=== PATIENT | male | born 1975 | race Caucasian/White ===

== ENCOUNTER 2018-02-13 08:23 | Emergency (ER) | payer BC, SELFPAY ==
[2018-02-13] VITALS (48 sets, daily range): BP systolic 120–176; BP diastolic 82–108; PULSE 64–95; RESP 6–32; TEMP 36.9; O2SAT 93–99
--- NOTE | 2018-02-13 08:41 | ED.GENADUL ---
Disposition Clinical Impression: Chest pain Disposition: HOME Condition: Stable Instructions: Chest Pain (ED) Additional Instructions: Please return immediately to the emergency department if you develop any new or worsening symptoms or if you become otherwise concerned. It is extremely important that you make an appointment to be seen by your primary care doctor and a employee communications manager within the next 1-2 weeks in follow-up for this visit. It is also extremely important that you attend your scheduled appointment this February 15 at 2 PM for stress test. Referrals: Dann Buckley MD [Primary Care Provider] - Ramsey Chan MD [ NON-[facility] STAFF PHYSICIAN] - Medical Decision Making - Lab Data Laboratory Tests 02/13/18 02/13/18 02/13/18 08:35 08:35 08:35 WBC 7.29 RBC 4.66 Hgb 15.5 Hct 44.6 MCV 95.7 H MCH 33.3 H MCHC 34.8 RDW 12.1 Plt Count 284 MPV 9.9 Immature Gran % 0.4 Neutrophils % 65.1 Lymphocytes % 25.4 Monocytes % 7.7 Eosinophils % 1.0 Basophils % 0.4 Absolute Neutrophils 4.75 Absolute Lymphocytes 1.85 Absolute Monocytes 0.56 Absolute Eosinophils 0.07 Absolute Basophils 0.03 D-Dimer 138 Sodium 137 Potassium 3.7 Chloride 102 Carbon Dioxide 27.5 Anion Gap 7.5 BUN 10 Creatinine 1.12 Estimated GFR/1.73 m2 >= 60.00 Glucose 110 H Calcium 8.8 Total Bilirubin 0.9 AST 27 ALT 62 Alkaline Phosphatase 57 Troponin I < 0.02 Total Protein 7.6 Albumin 4.2 02/13/18 12:12 WBC RBC Hgb Hct MCV MCH MCHC RDW Plt Count MPV Immature Gran % Neutrophils % Lymphocytes % Monocytes % Eosinophils % Basophils % Absolute Neutrophils Absolute Lymphocytes Absolute Monocytes Absolute Eosinophils Absolute Basophils D-Dimer Sodium Potassium Chloride Carbon Dioxide Anion Gap BUN Creatinine Estimated GFR/1.73 m2 Glucose Calcium Total Bilirubin AST ALT Alkaline Phosphatase Troponin I < 0.02 Total Protein Albumin Results reviewed for labs ordered during visit: Yes 02/13/18 11:17 EKG shows normal sinus rhythm at 90 with normal axis, no acute ischemic changes, no STEMI. Nondiagnostic EKG 02/13/18 12:45 Repeat EKG shows normal sinus rhythm at 66 with a normal axis, no acute ischemic changes. Nondiagnostic EKG - Radiology Data Chest x-ray visualized and interpreted by myself in conjunction with radiology: No acute process - Medical Decision Making Jose David Garcia is a 42-year-old man with history of hypertension, hyperlipidemia, GERD, heavy alcohol use who presents the emergency department with chest pain for approximately 36 hours, much worse at onset, now improved at 2 out of 10. No current shortness of breath. On exam patient is very well and nontoxic appearing. Appears comfortable. Concern for ACS versus PE versus GERD versus pericarditis versus other. Exam/history not consistent with acute aortic pathology. Plan for EKG, stress chest x-ray, screening labs, telemetry, IV, 324 mg chewable aspirin, sublingual nitroglycerin. EKG nonischemic. Patient reports no change in chest pressure after nitroglycerin, but now with headache. Will hold further nitroglycerin at this time. Plan for GI cocktail. Initial troponin negative. Will repeat troponin and EKG. Patient reports complete resolution of symptoms after GI cocktail. Feels in his usual state of health. Plan repeat troponin and repeat EKG negative. Patient continues to be symptom free. Plan for outpatient follow-up with PCP and cardiology, stress test scheduled for February 15 2 PM. Lengthy discussion with patient regarding return to emergency department precautions and importance of outpatient follow-up as planned. He is amenable to the plan. Patient placed on care management list for cardiology follow-up appointment. History of Present Illness - General Stated complaint: PER DR BUCKLEY CHEST PAIN Time Seen by Provider: 02/13/18 08:26 Source: patient, RN notes reviewed Mode of arrival: ambulatory Limitations: no limitations - History of Present Illness Initial comments: Jose David Garcia is a 42-year-old man with history of hypertension, hyperlipidemia, GERD presenting to the emergency department with chest pain. Patient reports that 2 nights ago he had intercourse with his , walked downstairs, sat down and developed left-sided chest pressure. Patient reports that he also felt quite short of breath with the chest pressure. Pain radiated into the left arm. Patient reports that chest pressure has been constant and unremitting since onset that night, although it has decreased significantly in severity. Patient reports that pain is currently a 2 out of 10. He no longer feels short of breath. He has had no nausea, vomiting, diarrhea. He denies any other pain. No fevers, no cough. No recent illnesses. No travel. Has been eating and drinking normally. No history of chest pain prior to this episode. - Related Data Indomethacin 50 mg PO TID PRN #30 tab-cap 06/28/16 Losartan [Cozaar] 50 mg PO DAILY 30 Days #30 tab-cap 09/27/17 Ibuprofen 800 mg PO TID PRN #90 tab-cap 10/07/17 [place], Disposable [Easy Touch Hypodermic Needle] each MC q 2 weeks #1 10/07/17 Syringe W-Cannula,Disp, 3 ml [Syringe] 1 each MC q 2 weeks #25 syringe 10/07/17 Testosterone Cypionate 100 mg IM q 2 weeks #2 vial 01/06/18 Allergies Allergy/AdvReac Type Severity Reaction Status Date / Time No Known Allergies Allergy Unverified 02/13/18 08:59 Review of Systems Constitutional: denies: fever Eyes: denies: eye pain ENT: denies: ear pain, throat pain, dental pain Respiratory: see HPI, shortness of breath. denies: cough Cardiovascular: denies: chest pain, orthopnea, edema, syncope Endocrine: denies: increased hunger, increased thirst Gastrointestinal: denies: abdominal pain, nausea, vomiting, diarrhea Musculoskeletal: as per HPI, myalgia (Left upper arm). denies: back pain, arthralgia Skin: denies: rash Neurological: denies: headache, weakness, numbness Past Medical History - Past Medical History Medical history: GERD, hyperlipidemia, hypertension - Social History Smoking status: current everyday smoker Alcohol use: heavy (Drinks 2-3 beers per night during the week and drinks 6-7 beers per night on the weekends) Drug use: none General Exam - General Limitations: no limitations General appearance: alert, in no apparent distress, other (Pleasant, conversing normally, well and nontoxic appearing) - Head Head exam: Present: atraumatic, normocephalic, normal inspection - Eye Eye exam: Absent: scleral icterus, conjunctival injection Pupils: Absent: irregular, unequal, miosis, mydriatic - ENT ENT exam: Present: mucous membranes moist - Neck Neck exam: Present: normal inspection - Respiratory Respiratory exam: Present: normal lung sounds bilaterally. Absent: respiratory distress - Cardiovascular Cardiovascular Exam: Present: regular rate, normal rhythm, normal heart sounds - GI/Abdominal GI/Abdominal exam: Present: soft. Absent: distended, tenderness - Extremities Exam Extremities exam: Present: normal inspection. Absent: pedal edema, calf tenderness - Back Exam Back exam: Present: normal inspection. Absent: rash noted - Neurological Exam Neurological exam: Present: alert, other (Grossly nonfocal, normal tone). Absent: altered - Psychiatric Psychiatric exam: Present: normal affect, normal mood - Skin Skin exam: Present: warm, dry, intact, normal color. Absent: rash
[2018-02-13 08:43] LABS: Abs Immature Grans 0.03 k/cumm (0.0-0.09); Absolute Basophil Count 0.03 k/cumm (0.0-0.2); Absolute Eosinophil Count 0.07 k/cumm (0.0-0.7); Absolute Lymphocyte Count 1.85 k/cumm (1.2-3.4); Absolute Monocyte Count 0.56 k/cumm (0.11-0.7); Absolute Neutrophil Count 4.75 k/cumm (1.2-6.7); Basophils % 0.4; HCT 44.6 % (40.0-50.0); HGB 15.5 g/dL (13.5-17.5); Immature Grans % 0.4; Lymphocytes % 25.4; Mean Corp. HGB Concentration 34.8 g/dL (32.0-36.0); Mean Corpuscular Hemoglobin 33.3 pg (27.0-33.0); Mean Corpuscular Volume 95.7 fL (80-95); Mean Platelet Volume 9.9 fL (8.0-11.0); Monocytes % 7.7; Neutrophils % 65.1; Platelet Count 284 x1000/uL (130-400); RBC 4.66 m/cumm (4.50-6.00); RBC Distribution Width 12.1 % (11.8-14.1); White Blood Cell Count 7.29 k/cumm (4.4-10.8)
--- NOTE | 2018-02-13 08:52 | DI.REPORT_ITS ---
SYMPTOM/DIAGNOSIS: CHEST PAIN CHEST X-RAY: PA and lateral. Comparison 07/05/11. The heart is normal in size. The lungs are clear. The mediastinal structures and pleura appear intact. CONCLUSION: Normal chest.
[2018-02-13 09:00] LABS: ALT 62 U/L (12-78); AST 27 U/L (15-37); Albumin 4.2 g/dL (3.4-5.0); Alkaline Phosphatase 57 U/L (46-116); Anion Gap 7.5 mmol/L (3-11); BUN 10 mg/dL (7-18); Bilirubin, Total 0.9 mg/dL (0.2-1.0); CO2 27.5 mmol/L (21.0-32.0); CREATININE 1.12 mg/dL (0.70-1.30); Calcium 8.8 mg/dL (8.5-10.1); Chloride 102 mmol/L (98-107); Glucose 110 mg/dL (70-100); Potassium 3.7 mmol/L (3.5-5.1); Sodium 137 mmol/L (136-145); Total Protein 7.6 g/dL (6.4-8.2); Troponin I < 0.02 ng/mL (0.00-0.06)
[2018-02-13] MEDS: Aspirin 81 MG CHEW 324 MG CH (09:10)
[2018-02-13 09:13] LABS: D-Dimer 138 ng/mlFEU (<500)
[2018-02-13 12:37] LABS: Troponin I < 0.02 ng/mL (0.00-0.06)
--- NOTE | 2018-02-14 08:30 | CMPROGNOTE_ITS ---
Care Management Progress Note 02/14-Dr. Margret Bee requested assistance with a PCP f/u and cardiology f/u post stress test, that is scheduled for 02/15 at 2PM. Patient seen in the ED for chest pain. Referral faxed to Cardiology and [facility] this am.
== END 2018-02-13 12:54 | disposition home or self-care (01) ==
PROVIDERS: Emergency Provider Student in an Organized Health Care Education/Training Program; PCP Family Medicine
DX: R07.9 Chest pain, unspecified (principal); I10 Essential (primary) hypertension
CPT/HCPCS: 36415; 80053; 93005; 99285; 71046; 84484; 85025; 85379; 93010

== ENCOUNTER → 2018-02-15 00:48 | Outpatient (CLI) | payer BC, SELFPAY ==
--- NOTE | 2018-02-15 14:00 | ETT_ITS ---
*[facility]* *[facility]* [address] [place] [address] Stress Electrocardiography [facility] protocol Date of study: 02/15/2018 *PATIENT PRESENTATION* Height: 177.8cm (70in) Blood Pressure: Weight: 79.5kg (175lb) BSA: 1.99m^2 Ordering physician: Lulu Bee Impressions: - Blood pressure response was hypertensive with stress. - Negative stress test after maximal exercise. Summary: 1. Stress ECG conclusions: The stress ECG is negative. Cerda treadmill score: 12. This score predicts a low risk of cardiac events. 2. Stress: The target heart rate was achieved. The heart rate response to stress is exaggerated. There is resting hypertension with a hypertensive response to stress. The patient experienced no chest pain during stress. Exercise capacity is excellent (13.5 METS). Recommendations: Medical management for hypertension is recommended. Indication: R07.9. History: REASON FOR TESTING: PT DEVELOPED LEFT SIDED CHEST PRESSURE 02/11/18, WITH ASSOCIATED SHORTNESS OF BREATH. THE PAIN RADIATED INTO HIS LEFT ARM. HE PRESENTED TO [facility] ON 02/12/18. COMPLETE RESOLUTION OF SX AFTER GI COCTAIL. WI RULED OUT, AND THE PT WAS DISCHARGED. PT STILL REPORTS SHORTNESS OF BREATH, BUT LESS SO THAN TUESDAY PM. PMH: HYPERTENSION, HYPERLIPIDEMIA, GERD. FAMILY HX: CAD IN FATHER AT AGE 42, CVA IN MOTHER. SMOKING: NEVER SMOKER, CHEWS 2 CANS TOBACCO DAILY. EXCERCISE: WALKS AT WORK. Risk factors: Family history of coronary artery disease. Hypertension. Dyslipidemia. Cholesterol: 233mg/dl. HDL: 67mg/dl. LDL: 144mg/dl. Triglycerides: 53mg/dl. ALLERGIES: NKDA MEDICATIONS: LOSARTAN 50 MG DAILY, TESTOSTERONE CYPIONATE 100 MG IM EVERY 2 WEEKS. Protocol: [facility] protocol. Baseline ECG: LAST EKG 02/13/18-SINUS RHYTHM, HR 66. TODAY'S EKG- SINUS RHYTHM, HR 79. Normal ECG. Stress protocol: + +---+ +---+ !Stage !HR !BP (mmHg) !Sat! + +---+ +---+ !Baseline supine !79 !144/90 (108) !---! + +---+ +---+ !Baseline standing !83 !146/96 (113) !97%! + +---+ +---+ !Stage I; 1.7mph, 10degrees; 3 min !113!158/98 (118) !97%! + +---+ +---+ !Stage II; 2.5mph, 12degrees; 3 min !135!178/100 (126)!99%! + +---+ +---+ !Stage III; 3.4mph, 14degrees; 3 min!154!100/104 (103)!97%! + +---+ +---+ !Stage IV; 4.2mph, 16degrees; 3 min !179!216/104 (141)!97%! + +---+ +---+ !Recovery; 1 min !176!200/88 (125) !---! + +---+ +---+ !Recovery; 3 min !118!196/90 (125) !---! + +---+ +---+ !Recovery; 6 min !107!156/92 (113) !---! + +---+ +---+ !Recovery; 9 min !104!148/92 (111) !---! + +---+ +---+ * Stress results: Maximal heart rate during stress was 182bpm (103% of maximal predicted heart rate). The maximal predicted heart rate was 176bpm. The target heart rate was achieved. The heart rate response to stress is exaggerated. There is resting hypertension with a hypertensive response to stress. The rate-pressure product for the peak heart rate and blood pressure was 60401ah Hg/min. The patient experienced no chest pain during stress. Exercise capacity is excellent (13.5 METS). Stress ECG: EXCERCISE TESTING ENDED IN 12 MINS DUE TO FATIGUE. MAX HR WAS 182, 103% OF TARGET. HYPERTENSIVE BLOOD PRESSURE REPSONSE. METS: 13.48 ECTOPY: NONE NOTED. ANGINA: 3/10 BURNING CHEST PAIN REPORTED AT 4 MINS OF RECOVERY. O/10 AT 8 MINS OF RECOVERY. ISCHEMIA: NO ISCHEMIC CHANGES NOTED. FUNCTIONAL CAPACITY: ABOVE AVERAGE CAPACITY. The stress ECG is negative. Cerda treadmill score: 12. This score predicts a low risk of cardiac events. Study data: True Kovacs MD supervised and was readily available during the procedure. This study was interpreted by [facility]. Study status: Routine. Consent: The risks, benefits, and alternatives to the procedure were explained to the patient and informed consent was obtained. Procedure: Initial setup. A baseline ECG was recorded. Surface ECG leads and manual cuff blood pressure measurements were monitored. Heart sounds: Normal. Lung sounds: Normal. Treadmill exercise testing was performed using the [facility] protocol. Study completion: The patient tolerated the procedure well and was discharged from the lab. Discharge: The patient left the laboratory in stable condition. Birthdate: Patient birthdate: 1975. Sex: Gender: male. Study date: Study date: 02/15/2018. Study time: 02:00 PM. Signature Documentation: The Stress ECG portion of this study was interpreted by True Kovacs MD. Electronically signed by True Kovacs 02/15/2018 15:18
== END ==
PROVIDERS: PCP Family Medicine; Visit Provider Student in an Organized Health Care Education/Training Program
DX: R07.89 Other chest pain (principal); R06.02 Shortness of breath; M79.602 Pain in left arm; I10 Essential (primary) hypertension; E78.5 Hyperlipidemia, unspecified
CPT/HCPCS: 93017

== ENCOUNTER 2020-04-29 01:45 | Outpatient (CLI) | payer OTHER, SELFPAY ==
[2020-04-29 12:48] LABS: Abs Immature Grans 0.03 10^3/uL (0.0-0.06); Absolute Basophil Count 0.06 10^3/uL (0.0-0.2); Absolute Eosinophil Count 0.07 10^3/uL (0.0-0.7); Absolute Lymphocyte Count 1.52 10^3/uL (1.2-3.4); Absolute Monocyte Count 0.46 10^3/uL (0.1-0.8); Absolute Neutrophil Count 5.48 10^3/uL (1.2-6.7); Basophils % 0.8; Eosinophils % 0.9; HCT 42.4 % (40.0-50.0); HGB 14.7 g/dL (13.5-17.5); Immature Grans % 0.4; Lymphocytes % 19.9; MCH 33.6 pg (27.0-33.0); MCHC 34.7 % (32.0-36.0); MPV 10.4 fL (8.0-11.0); Nucleated RBC 0 %; Platelet Count 285 10^3/uL (130-400); RBC 4.37 10^6/uL (4.36-5.78); RDW 11.4 % (11.8-14.1); WBC 7.62 10^3/uL (4.4-10.8)
[2020-04-29 13:02] LABS: ALT 72 U/L (16-63); AST 51 U/L (15-37); Albumin 4.4 g/dL (3.4-5.0); Alkaline Phosphatase 56 U/L (46-116); Anion Gap 9.9 mmol/L (3-11); BUN 14 mg/dL (7-18); Bilirubin, Total 1.2 mg/dL (0.2-1.0); CO2 26.1 mmol/L (21.0-32.0); CREATININE 0.85 mg/dL (0.70-1.30); Calculated LDL 192 mg/dL (<100); Chloride 99 mmol/L (98-107); Cholesterol 272 mg/dL (<200); Glucose 102 mg/dL (74-106); HDL Cholesterol 60 mg/dL (40-60); Potassium 4.3 mmol/L (3.5-5.1); Sodium 135 mmol/L (136-145); Total Protein 7.6 g/dL (6.4-8.2); Triglyceride 101 mg/dL (<150)
[2020-04-29 18:35] LABS: PSA, Screening 0.6 ng/mL (0.0-2.5)
[2020-05-02 09:31] LABS: Testosterone, Total 1020 ng/dL (240-950)
== END 2020-04-29 02:05 ==
PROVIDERS: PCP Family Medicine; Visit Provider Family Medicine
DX: E29.1 Testicular hypofunction (principal); Z79.890 Hormone replacement therapy; Z12.5 Encounter for screening for malignant neoplasm of prostate
CPT/HCPCS: 36415; 80053; 80061; 84153; 84403; 85025

== ENCOUNTER 2020-07-29 03:23 | Outpatient (CLI) | payer OTHER, SELFPAY ==
[2020-07-29 12:53] LABS: ALT 95 U/L (16-63); Calculated LDL 84 mg/dL (<100); Cholesterol 168 mg/dL (<200); HDL Cholesterol 70 mg/dL (40-60); Triglyceride 73 mg/dL (<150)
[2020-07-29 13:05] LABS: Uric Acid 6.6 mg/dL (3.5-7.2)
== END 2020-07-29 03:43 ==
PROVIDERS: PCP Family Medicine; Visit Provider Family Medicine
DX: E78.5 Hyperlipidemia, unspecified (principal); M10.9 Gout, unspecified
CPT/HCPCS: 36415; 80061; 84460; 84550

== ENCOUNTER 2020-09-10 03:59 | Outpatient (CLI) | payer OTHER, SELFPAY ==
[2020-09-10 13:00] LABS: CREATININE 0.9 mg/dL (0.70-1.30)
== END 2020-09-10 04:00 | disposition home or self-care (01) ==
LOC: LOS 04:00
PROVIDERS: PCP Family Medicine; Visit Provider Nurse Practitioner Family
DX: I10 Essential (primary) hypertension (principal); Z79.899 Other long term (current) drug therapy; Z51.81 Encounter for therapeutic drug level monitoring
CPT/HCPCS: 36415; 82565

== ENCOUNTER 2020-10-28 02:19 | Outpatient (CLI) | payer OTHER, SELFPAY ==
[2020-10-29 12:53] LABS: COVID-19 RT-PCR UVMMC Result Negative (Negative)
== END 2020-10-28 02:20 | disposition home or self-care (01) ==
LOC: LBO 02:19
PROVIDERS: PCP Family Medicine; Visit Provider Nurse Practitioner Family
DX: Z03.818 Encounter for observation for suspected exposure to other biological agents ruled out (principal)
CPT/HCPCS: U0003

== ENCOUNTER 2020-11-26 07:13 | Outpatient (CLI) | payer OTHER, SELFPAY ==
[2020-11-26 12:51] LABS: HCT 45.3 % (40.0-50.0); HGB 15.2 g/dL (13.5-17.5); MCHC 33.6 % (32.0-36.0); MCV 95.4 fL (80-95); MPV 10.6 fL (8.0-11.0); Platelet Count 326 10^3/uL (130-400); RBC 4.75 10^6/uL (4.36-5.78); RDW 11.4 % (11.8-14.1); RDW-SD 40.3 fL; WBC 7.72 10^3/uL (4.4-10.8)
[2020-11-26 12:58] LABS: Anion Gap 10.6 mmol/L (3-11); BUN 16 mg/dL (7-18); CO2 29.4 mmol/L (21.0-32.0); CREATININE 0.9 mg/dL (0.70-1.30); Calcium 9.8 mg/dL (8.5-10.1); Chloride 100 mmol/L (98-107); Glucose 89 mg/dL (74-106); Potassium 4.3 mmol/L (3.5-5.1); Sodium 140 mmol/L (136-145)
== END 2020-11-26 07:14 | disposition home or self-care (01) ==
LOC: LOS 07:14
PROVIDERS: PCP Family Medicine; Visit Provider Nurse Practitioner
DX: R10.9 Unspecified abdominal pain (principal)
CPT/HCPCS: 36415; 80048; 85027

== ENCOUNTER 2020-12-18 10:59 | Outpatient (REF) | payer OTHER, SELFPAY ==
[2020-12-18 23:34] LABS: Campylobacter PCR Negative (Negative); Salmonella PCR Negative (Negative); Shiga Toxin PCR Negative (Negative); Shigella/Enteroinvasive Ecoli Negative (Negative)
== END 2020-12-18 11:00 | disposition home or self-care (01) ==
LOC: LBN 10:59
PROVIDERS: PCP Nurse Practitioner Family; Visit Provider Nurse Practitioner Family
DX: R19.7 Diarrhea, unspecified (principal)
CPT/HCPCS: 87505

== ENCOUNTER 2021-01-26 02:56 | Outpatient (CLI) | payer OTHER, SELFPAY ==
[2021-01-26 11:39] LABS: Source Nasal/Nares
[2021-01-26 16:50] LABS: COVID-19 PCR Negative (Negative)
== END 2021-01-26 02:57 | disposition home or self-care (01) ==
LOC: LBO 02:56
PROVIDERS: PCP Nurse Practitioner Family; Visit Provider Surgery
DX: Z20.822 Contact with and (suspected) exposure to COVID-19 (principal); Z01.818 Encounter for other preprocedural examination
CPT/HCPCS: 87635

== ENCOUNTER 2021-01-28 07:53 | Day surgery (SDC) | payer OTHER, SELFPAY ==
--- NOTE | 2021-01-28 06:29 | ENDO_ITS ---
Date of service: 01/28/21 Time of Service: 09:39 Endoscopy Report DATE OF PROCEDURE: 01/28/21 PRE-OP DIAGNOSIS: Diarrhea, Nausea, LLQ pain POST-OP DIAGNOSIS: other (Gastritis and esophagitis) PROCEDURE: 1. EGD with biopsies 2. Colonoscopy with random biopsies SURGEON: Marianne Lomeli ANESTHESIA TYPE: General:No Airway (ASA 2/ Jana Harris, VERA) ESTIMATED BLOOD LOSS: 3 COMPLICATIONS: None DISPOSITION: same day INDICATIONS: Mr. Garcia is a pleasant 45-year-old gentleman with 3 months of diarrhea. He has 4-5 stools per day on average. He is also experiencing some intermittent left lower quadrant pain and intermittent nausea. He has also had some epigastric pain and bloating intermittently. He denies any blood in his stool. Recommended EGD and colonoscopy. The procedures were described in detail using a pamphlet. Risks, benefits and complications have been reviewed. Complications include but are not limited to bleeding, pain, perforation, missed small lesion/polyp, sore throat, aspiration and adverse reaction to the medications. Questions were entertained and answered to their satisfaction and they wished to proceed. No guarantees were given or implied. Patient has had both vaccines. Because we are doing an EGD we will test him for Covid. Proceed with colonoscopy and EGD under sedation PREP: Miralax/Dulcolax PROCEDURE START TIME: 08:40 PROCEDURE END TIME: 09:17 COLONOSCOPY RETRACTION TIME: 19 minutes FINDINGS: Inflammation of the stomach and esophagus Normal colon PROCEDURE DESCRIPTION: After informed consent was obtained the patient was take to the procedure room and placed in a supine position. Monitors were applied and a time out was done. The patients name, date of , procedure type, allergies to medications and metal in their body was reviewed. A bite block was placed and the patient was sedated. Once sedated and comfortable the gastroscope was advanced through the oropharynx which was grossly normal into the esophagus. The proximal and mid- esophagus were normal. In the distal esophagus there was inflammation noted. The scope was advanced into the stomach and through the pylorus into the 3rd portion of the duodenum. The duodenum was noted to be normal. Biopsies were done. The scope was retracted back into the stomach. There was inflammation noted in the antrum as well as some shallow ulcers. Biopsies were done to rule out H. pylori. The scope was retro-flexed. The cardia and fundus were noted to be normal. There was no hiatal hernia noted. The scope was retracted back into the esophagus and biopsies were done of the GE junction to rule out Cuenca's. The Z line was regular. The GE junction was at 42 cm. While the patient was still sedated they were placed in a left decubitous position. A rectal exam was done. External exam was normal. Internal exam revealed a normal sphincter tone and no palpable masses. The prostate felt normal. The scope was then introduced and retro-flexed. No internal hemorrhoids, masses or polyps were identified on retroflexion. The scope was then advanced to the cecum without difficulty. The ileocecal valve and appendiceal orifice were identified. The prep was good. The scope was then slowly retracted over 19 minutes back into the rectum. There were no polyps. Biopsies were done throughout the colon. There was mild diverticulosis noted in the ascending colon. The scope was removed and the patient was woken up and taken back to Same day surgery in stable condition. The patient tolerated the procedure well and there were no immediate complications. Follow up: 2 weeks in office
--- NOTE | 2021-01-28 06:30 | W.PM.DSUDISC ---
Discharge Plan Disposition Patient Disposition: HOME Condition: Good Discharge Details Reason For Visit: Diarrhea, LLQ pain and Nausea Attending Provider: Marianne Lomeli Primary Care Provider: Dino Cutler Home Meds and New Rx's Prescriptions: New omeprazole 40 mg capsule,delayed release(DR/EC) 40 mg PO DAILY Qty: 30 RF: 3 Continued sildenafil [Viagra] 50 mg tablet 50 mg PO DAILY PRN (Reason: sexual activity) Qty: 5 RF: 5 lisinopril 30 mg tablet 30 mg PO DAILY Qty: 60 RF: 4 loperamide [Imodium A-D] 2 mg tablet 2 mg PO Q6H PRN (Reason: loose stool) Qty: 30 RF: 0 aspirin [Adult Low Dose Aspirin] 81 mg tablet,delayed release (DR/EC) 81 mg PO DAILY Qty: 90 RF: 3 atorvastatin 20 mg tablet 20 mg PO QHS Qty: 90 RF: 3 Discharge Instructions Additional Instructions: Findings: inflammation of the stomach and esophagus normal colon Follow up: in the office in 2 weeks Please call if you develop: fevers >101.5 Nausea or Vomiting Abdominal pain that is not transient Rectal bleeding that is more then a tbsp A hard abdomen and inability to pass gas DAY SURGERY UNIT POST ENDOSCOPY INSTRUCTIONS Instructions for everyone who is given Anesthesia: For your safety, please do the following for the next 24 Hours: a. Do not drive or operate dangerous equipment b. Do not drink alcohol beverages or use any recreational drugs for the first 24 hours or while taking pain medications. The medications in your body may have a reaction that can be dangerous. c. Do not make any important decisions or sign any important papers 1. Generally there are no restrictions on your activity after a day or so has gone by, but you may feel a bit fatigued for a few days. 2. After you arrive home you may have a light meal and return to a normal diet as you can tolerate it without feeling sick to your stomach. 3. After surgery, you may feel pain or discomfort. This should be only transient, but if it persists please contact your doctor. 4. If there are any questions regarding the findings of your procedure, please feel free to contact your doctor. 6. If you are unable to contact your doctor with a problem, contact the hospital at [phone]. 7. Continue all your regular medications unless directed otherwise. I understand the above instructions and have no questions. Signature of Patient or Responsible Adult Escort Date/Time Name of Responsible Adult Escort Signature of Nurse Date/Time Activity:: Activity as Tolerated Diet:: As Tolerated Discharge Orders Discharge Orders: Discharge Order (Routine); Ordered 01/28/21 Ordered By: Marianne Lomeli
[2021-01-28 08:05] VITALS: BP 145/97; PULSE 78; RESP 16; TEMP 36.3; O2SAT 97
--- NOTE | 2021-01-28 08:15 | ANES.PREOP_ITS ---
General Info Date of Service Date Performed: 01/28/21 Height: 5 ft 9 in Weight: 74.2 kg Body Mass Index (BMI): 24.1 Surgical Procedure: Operation Date: 01/28/21 08:20 Proposed Procedures Side Surgeon p Colonoscopy/Gastroscopy Marianne Lomeli MD Meds Allergies and Home Medications Allergies Allergy/AdvReac Type Severity Reaction Status Date / Time No Known Allergies Allergy Verified 01/28/21 08:03 Home Medication Medication Instructions Recorded aspirin 81 mg tablet,delayed 81 mg PO DAILY #90 tab 05/13/20 release atorvastatin 20 mg tablet 20 mg PO QHS #90 tab 05/13/20 sildenafil 50 mg tablet 50 mg PO DAILY PRN #5 tab 08/06/20 lisinopril 30 mg tablet 30 mg PO DAILY #60 tab 12/17/20 loperamide 2 mg tablet 2 mg PO Q6H PRN #30 tab 12/17/20 Current Visit Medications: Current Medications Generic Name Dose Route Start Last Admin Trade Name Freq PRN Reason Stop Dose Admin Hyoscyamine Sulfate 0.125 mg 01/28/21 06:31 Hyoscyamine 0.125 Mg Sl/Oral/Chew SL DIRECTED PRN Ringer's Solution 1,000 mls @ 80 mls/hr 01/28/21 06:00 IV 02/26/21 23:59 [facility] IV Miscellaneous Supplies 1 each 01/28/21 06:00 Iv Access IV 02/26/21 23:59 DIRECTED MADELINE Ondansetron HCl 4 mg 01/28/21 06:31 Ondansetron 4 Mg/2 Ml Vial IVP Q4H PRN PRN Nausea / Vomiting Sodium Chloride 0 ml 01/28/21 06:00 Normal Saline Flush 10 Ml Syr IV 02/26/21 23:59 PRN PRN Sodium Chloride 0 ml 01/28/21 06:00 Normal Saline 10 Ml Vial IJ 02/26/21 23:59 DIRECTED PRN Sterile Water 0 ml 01/28/21 06:00 Water,Injection,Sterile 10 Ml Vial IJ 02/26/21 23:59 DIRECTED PRN PFSH Active Problems Active Problems: Problem Status Onset Code Nausea R11.0 Diarrhea R19.7 LLQ abdominal pain R10.32 Encounter for monitoring DILEEP-inhibitor therapy Z51.81, Z79.899 Long-term current use of testosterone replacement therapy Z79.890 Hyperlipemia E78.5 Erectile dysfunction N52.9 Gout M10.9 Family history of coronary artery disease in father Z82.49 Elevated LFTs 09/27/17 R94.5 Male erectile dysfunction, unspecified 09/27/17 N52.9 Essential hypertension I10 Family history of stroke 09/27/17 Z82.3 Gout, unspecified 09/27/17 M10.9 Hyperlipidemia E78.5 Medical History Medical History Alcohol intake above recommended sensible limits Chewing tobacco nicotine dependence Erectile dysfunction Esophageal reflux Gout HTN (hypertension) Hyperlipemia Hyperuricemia (09/27/17) Hypogonadism Lateral epicondylitis of left elbow Left knee pain Shoulder pain right Surgical History Surgical History Colonoscopy - MAC 07/20/11 Tobacco Smoking/Tobacco Use Status: Current every day Tobacco Type: smokeless tobacco Smokeless tobacco user: chewing tobacco Quit Status: considering quitting Second hand exposure: Yes Alcohol Alcohol Intake: current Alcohol intake frequency: 3 or more drinks per day Alcohol type: beer Details: 6 Beers a night Substance Use Substance use: Never Substance use type: does not use Vital Signs and Lab Results Vital Signs Most Recent Vital Signs in EMR: Most Recent Vital Signs Temp Pulse Resp BP Pulse Ox 36.3 C L 78 16 145/97 H 97 01/28/21 08:05 01/28/21 08:05 01/28/21 08:05 01/28/21 08:05 01/28/21 08:05 Lab Results Blood Type / Crossmatch: No Data to Display Complete Blood Count: No Data to Display Complete Metabolic Panel: No Data to Display Liver Function Panel: No Data to Display Coagulation Panel: No Data to Display Cardiac Panel: No Data to Display Arterial Blood Gas: No Data to Display Venous Blood Gas: No Data to Display Pancreas Panel: No Data to Display Thyroid Panel: No Data to Display Infectious Disease: Coronavirus (COVID-19)(PCR) Negative (Negative) 01/26/21 08:26 01/26/21 Coronavirus 2019 Source Nasal/Nares 01/26/21 08:26 01/26/21 Blood Cultures: No Data to Display Toxicology Panel: No Data to Display Imaging and Studies Imaging and Studies Stress Test Summary: Impressions: - Blood pressure response was hypertensive with stress. - Negative stress test after maximal exercise. Summary: 1. Stress ECG conclusions: The stress ECG is negative. Cerda treadmill score: 12. This score predicts a low risk of cardiac events. 2. Stress: The target heart rate was achieved. The heart rate response to stress is exaggerated. There is resting hypertension with a hypertensive response to stress. The patient experienced no chest pain during stress. Exercise capacity is excellent (13.5 METS). Recommendations: Medical management for hypertension is recommended. 02/15/18 Anesthesia Assessment and Plan Anesthesia History Personal History: No History of Anesthesia Complications Family History: No Family History of Anesthesia Complications Exercise Tolerance Exercise Tolerance: Metabolic Equivalents>4 Pertinent Negatives Pertinent Negatives: No Symptoms of GERD (History but none recently, does have frequent nausea) Cardiac & Pulmonary Exam Cardiac Exam: Normal S1/S2 Heart Sounds Pulmonary Exam: Clear Bilateral Breath Sounds Airway Exam Known Difficult Airway: No Mallampati Class: 2 Mouth Opening: Normal (> 3cm) Thyromental Distance: Greater than 3 cm Neck Range of Motion: Full ROM Neck Circumference: Normal Teeth Condition: Normal Dentition ASA Classification ASA Score: ASA 2 Emergency Case?: No NPO Status NPO Status: NPO Clears >2 hours, Solids >8 hours Anesthesia Plan Resuscitation Status: Full Code Anesthesia Technique: General Anesthesia Airway Planned: Natural Airway Monitors Used: Standard Monitors
[2021-01-28 08:20] VITALS: BMI 24.1
[2021-01-28] MEDS: Lactated Ringers 1,000 ML 80 ML IV (08:20)
--- NOTE | 2021-01-28 08:45 | BOWEL_PTH ---
PATIENT: Jose David Garcia LOC: DEB U#:[id number] AGE/SX: 45/M ROOM: RE01/28/[address]: Marianne Lomeli MD : 1975 BED: DIS: 01/28/2021 SPEC #: [id number] RECD: 01/28/21 12:47 STATUS: LATRICE REMaria Guadalupe #: [id number] HELIO: 01/28/21 08:[address]: Marianne Lomeli DEPT: Surgical Specimen RECD BY: Heike Cook ENTERED: 01/28/21 12:54 SP TYPE: Bowel OTHR DR: Dino Cutler, [employer] Tissues: 1 - BIOPSY BOWEL 2 - STOMACH BIOPSY 3 - STOMACH BIOPSY 4 - ESOPHAGUS BIOPSY 5 - BIOPSY BOWEL 6 - BIOPSY BOWEL 7 - BIOPSY BOWEL 8 - BIOPSY BOWEL Procedures: GROSS AND MICRO LEVEL 4 Comments: [id number]
[2021-01-28 09:24] VITALS: BP 126/85; PULSE 85; RESP 16; TEMP 36.3; O2SAT 96
[2021-01-28 09:48] VITALS: BP 135/99; PULSE 70; RESP 16; TEMP 36.4; O2SAT 98
--- NOTE | 2021-01-28 10:01 | W.ANESPOSTOP ---
Postoperative Evaluation Date, Time and Location Date Performed: 01/28/21 Time Performed: 09:50 Patient Location: Day Surgery Unit Vital Signs Most Recent Imported Vital Signs: Most Recent Vital Signs Temp Pulse Resp BP Pulse Ox 36.4 C L 70 16 135/99 H 98 01/28/21 09:48 01/28/21 09:48 01/28/21 09:48 01/28/21 09:48 01/28/21 09:48 Pain Score Most Recent Pain Score: Most Recent Pain Score Pain Level 0 01/28/21 09:48 Assessment Mental Status: Awake (Alert & Oriented to Patient Baseline) Airway and Respiratory Function: Patent airway with normal (patient baseline) respiratory exam Cardiovascular Function: Hemodynamically Stable Hydration Status: Adequately Hydrated Nausea & Vomiting: No Nausea or Vomiting Pain: Pt. Denies Any Pain Peripheral Nerve Block: Patient did not receive a nerve block
== END 2021-01-28 10:45 | disposition home or self-care (01) ==
LOC: SUR 07:54
PROVIDERS: PCP Nurse Practitioner Family; Visit Provider Surgery
PROC: (CPT 45380; principal; 2021-01-28 08:15)
DX: K29.00 Acute gastritis without bleeding (principal); K20.90 Esophagitis, unspecified without bleeding; K57.30 Diverticulosis of large intestine without perforation or abscess without bleeding; R11.0 Nausea; R10.32 Left lower quadrant pain; R19.7 Diarrhea, unspecified; K31.89 Other diseases of stomach and duodenum
CPT/HCPCS: 45380; 43239; 88305; J2001

== ENCOUNTER 2021-04-19 18:02 | Observation (INO) | payer OTHER, SELFPAY ==
[2021-04-19] VITALS (24 sets, daily range): BP systolic 117–197; BP diastolic 68–157; PULSE 88–264; RESP 11–27; TEMP 35.9–36.9; O2SAT 91–100
--- NOTE | 2021-04-19 18:00 | RT.EKG_ITS ---
APPROVED REPORT Exam: Resting ECG Reason for Exam: syncope Patient Location: E HR:103 bpm ECG Measurements Heart Rate 103 AXIS OH 175 P 64 QRSd 103 QRS 25 QT 362 T 22 QTc 474 Conclusion Sinus tachycardia...rate> 99 Probable left atrial enlargement...P >50mS, <-0.10mV V1
--- NOTE | 2021-04-19 18:45 | DI.CT_ITS ---
Exam(s) CT HEAD CERVICAL SPINE WO EXAM: CT HEAD CERVICAL SPINE WO COMPARISON: CT HEAD AND CSPINE W/O CONTRAST from 07/05/2011 FINDINGS: CT examination of the cervical spine was performed without contrast administration. There is no evidence of acute cervical spine fracture or dislocation. Intervertebral disc spaces are well maintained. Tracheolaryngeal structures appear intact. No cervical mass or adenopathy. Noncontrast cranial CT was performed. Ventricular system is normal in appearance. No evidence of acute intracranial hemorrhage, mass effect, or midline shift. No calvarial fracture. The orbital and temporal bone structures appear intact. Visualized mastoid air cells and paranasal sinuses appear clear. IMPRESSION: No evidence of acute cervical spine injury. No evidence of acute intracranial injury. RADIATION DOSE DELIVERED: 1,264.44mGy.cm Total DLP 1,264.44mGy.cm Total DLP 18.59mGy CTDIvol DATA REPOSITORY: All CT scans at this facility are submitted to the National Radiology Data Registry (NRDR) Dose Index Registry (DIR) with the [employer] (A[employer]). RADIATION OPTIMIZATION: All CT scans at this facility use at least one of these dose optimization te chniques: automated exposure control; mA and/or kV adjustment per patient size (includes targeted exa ms where dose is matched to clinical indication); or iterative reconstruction.
--- NOTE | 2021-04-19 18:45 | DI.RAD_ITS ---
Exam(s) XR CHEST 2V PA LATERAL EXAM: XR CHEST 2V PA LATERAL CLINICAL HISTORY: chest pressure TECHNIQUE: 2D digital imaging was performed. COMPARISON: CR CHEST 2 VIEWS PA,LAT from 02/13/2018 FINDINGS: The heart is not enlarged. The lungs are clear and well expanded. No pleural effusion seen. Mediastin al contours appear intact. IMPRESSION: Normal chest. RADIATION DOSE DELIVERED: Total DLP
[2021-04-19] MEDS: Lactated Ringers 1,000 ML 1000 ML IV ×2 (18:46→21:39)
[2021-04-19] MEDS: Ondansetron 4 MG/2 ML VIAL IVP (19:13)
[2021-04-19 19:14] LABS: Abs Immature Grans 0.08 10^3/uL (0.0-0.06); Absolute Basophil Count 0.07 10^3/uL (0.0-0.2); Absolute Eosinophil Count 0.05 10^3/uL (0.0-0.7); Absolute Lymphocyte Count 1.71 10^3/uL (1.2-3.4); Absolute Monocyte Count 0.48 10^3/uL (0.1-0.8); Absolute Neutrophil Count 5.45 10^3/uL (1.2-6.7); Basophils % 0.9; Eosinophils % 0.6; HGB 13.4 g/dL (13.5-17.5); Lymphocytes % 21.8; MCHC 34.4 % (32.0-36.0); MCV 93.1 fL (80-95); MPV 9.9 fL (8.0-11.0); Monocytes % 6.1; Neutrophils % 69.6; Nucleated RBC 0 %; Platelet Count 350 10^3/uL (130-400); RBC 4.19 10^6/uL (4.36-5.78); RDW-SD 37.5 fL; WBC 7.84 10^3/uL (4.4-10.8)
[2021-04-19] MEDS: LORazepam 2 MG/ML VIAL (19:16)
[2021-04-19 19:26] LABS: ALT 115 U/L (16-63); AST 92 U/L (15-37); Albumin 4.5 g/dL (3.4-5.0); Alkaline Phosphatase 92 U/L (46-116); Anion Gap 13.1 mmol/L (3-11); BUN 16 mg/dL (7-18); Bilirubin, Total 0.6 mg/dL (0.2-1.0); CO2 25.9 mmol/L (21.0-32.0); CREATININE 1.2 mg/dL (0.70-1.30); Calcium 9.3 mg/dL (8.5-10.1); Chloride 91 mmol/L (98-107); Glucose 117 mg/dL (74-106); Magnesium 2.5 mg/dL (1.8-2.4); Potassium 3.7 mmol/L (3.5-5.1); Sodium 130 mmol/L (136-145); Total Protein 8.2 g/dL (6.4-8.2)
--- NOTE | 2021-04-19 19:32 | ED.GENADUL_ITS ---
Discharge Plan Disposition Patient Disposition: [facility] INPATIENT Condition: Stable Discharge Details Clinical Impression: Chest pressure, Syncope, Hyponatremia, Transaminitis Admit Date/Time: 04/19/21 23:46 Admit Provider: Albin Harris Attending Provider: Albin Harris Primary Care Provider: Dino Cutler ED Provider: Juarez Resendiz Discharge Data Discharge Date/Time-TO BE ENTERED AT DEPARTURE: 04/20/21 00:20 Medical Decision Making <Dylon Bee MD - Last Filed: 04/27/21 22:32> 46-year-old male with history of regular heavy alcohol use, hypertension, hyperlipidemia, here after syncopal episode shortly after standing and after recently having used PDE?5 inhibitor. Patient now tachycardic, normotensive. Patient does have headache. Neurologically intact. Patient also with chest pressure. Considered arrhythmia and ACS. Screening ECG was reviewed interpreted by me: Please see report, nondiagnostic. Plan to check troponin. Patient is low risk for pulmonary embolism but does have tachycardia and chest pressure. I will check D-dimer. Consider acute life-threatening intracranial traumatic hemorrhage from fall. Plan to CT head. I was called into bedside by nursing for reassessment as patient was having some significant anxiety and shaking of his lower extremities. He was given Ativan 1 mg IV exercise followed by another Ativan 1 mg IV while at CT scan.\ CT of the head was reviewed and interpreted by radiology: No acute intracranial abnormality. Considered C-spine fracture, CT of the cervical spine was interpreted by radiology: Chronic left occipital condyle fracture, no acute fracture or subluxation. C-spine was cleared by me and collar removed. Additional labs reviewed: Mild hyponatremia with sodium of 130 noted. Mild transaminitis. D-dimer 99. Initial troponin negative. Alcohol level is now 91. Patient states he typically drinks 6-8 beers a day. He states he had 6 beers of the course of today. I am concerned that his anxiety and shaking may be alcohol withdrawal. 2031 --patient reassessed and remains tachycardic. He is feeling much better after Ativan was given orally but still has some chest pressure. Plan will be to check repeat EKG and delta troponin at 2144. Patient will need reassessment for determination of disposition. I did raise the potential that alcohol withdrawal is contributing to his symptoms presented. He and his seem resistant to this as a possibility. <Juarez Resendiz, DO - Last Filed: 04/19/21 23:08> Case was signed out to me by my colleague Dr. Dylon Bee. Please refer to his HPI, physical exam assessment and plan. At time of signout patient was pending reassessment after delta troponin repeat EKG. Delta troponin negative, EKG stable. I did go in and reassess the patient. He does complain of slight heaviness in his arms and legs, of a repeat neurologic exam was as follows: All 6 cardinal planes of vision are fully intact. No evidence of rotatory or vertical nystagmus. The patient demonstrated a normal udhjyq-qjtx-kzjvqd, good dexterity. There was no evidence of dysdiadochokinesia. Cncw-wp-nnvl testing was normal. Sensation was intact bilaterally as well as muscle strength bilaterally for all extremities. Patient was able to verbalize butter cup with no slurring, or miss pronunciation. We did get the patient up to ambulate, and when standing up the patient became extremely unsteady, he was ataxic and unable to walk. He also had a return of his shaking, and had some mild dysarthria while he was shaking. Once he sat down regained his composure he had no dysarthria or difficulty speaking whatsoever. Concern for potential vasal vagal component, and I doubt cerebellar infarct as the patient otherwise demonstrates no dysdiadochokinesia, dysmetria, and demonstrates a normal awit-nd-ttxq test otherwise. His chronic alcoholism may certainly be a component. Will add banana bag and 500 mg of additional thiamine. With the patient's continued symptoms though, in spite of his negative CT scan, and otherwise unremarkable neurologic exam I do feel that he would benefit from inpatient admission, continued fluids, and reassessment in the morning. Discussed the case with hospitalist Dr. Harris. He agrees with the assessment and plan. I have extensively reviewed the treatment plan with the patient. I have addressed all patient concerns at this time. I have also discussed the plan with the admitting physician and they agree with the current assessment and plan and have agreed to assume responsibility for the patient. All parties demonstrate verbal understanding and agreement with our assessment and plan at this time. The documentation in this chart was dictated using Mark43 dictation software. Please excuse any dictation errors. Of note at this point there is no evidence of an acute persistent neurologic deficit or stroke findings. The patient is not an appropriate candidate for TPA at this stage clinically. FINDINGS: Brain: Normal. No hemorrhage. Unremarkable white matter. No mass effect. Cerebral ventricles: No ventriculomegaly. Paranasal sinuses: Mucous retention cyst in the left maxillary antrum. No fluid levels. Mastoid air cells: Visualized mastoid air cells are well aerated. Bones/joints: Unremarkable. No acute fracture. Soft tissues: Unremarkable. IMPRESSION: No acute intracranial abnormality FINDINGS: Bones/joints: Alignment is normal. Chronic left occipital condyle fracture noted. No acute fracture or subluxation. Discs/Spinal canal/Neural foramina: No severe spinal canal stenosis. No severe bony neural foraminal narrowing. Lungs: Lung apices are normal. Soft tissues: Unremarkable. IMPRESSION: 1. Chronic left occipital condyle fracture. 2. No acute fracture or subluxation. Thank you for allowing us to participate in the care of your patient. Dictated and Authenticated by: Braydon Irizarry MD 04/19/2021 7:59 PM Eastern Time ([place] & [place] FINDINGS: Lungs: No consolidation. Pleural spaces: No pleural effusion. No pneumothorax. Heart/Mediastinum: No cardiomegaly. Bones/joints: No acute fracture. IMPRESSION: No acute cardiopulmonary pathology. Thank you for allowing us to participate in the care of your patient. Dictated and Authenticated by: Marlene Christian MD 04/19/2021 9:52 PM Eastern Time ([place] & [place]) HPI <Dylon Bee MD - Last Filed: 04/27/21 22:32> General Mode of arrival: ambulatory . Date/Time Provider Initiated Documentation: 04/19/21 18:40 . Limitations to Documentation: no limitations . Information obtained by: patient . HPI Narrative: 46-year-old male presents with chief complaint of syncope. Patient notes he took a Cialis and had sexual activity with his and then fell asleep on the couch. He woke up and jumped up to go to the oven remembering that he had food cooking and suddenly felt dizzy and lost consciousness. He fell and hit his head on the counter in floor. He now has headache that is moderate. Patient denies associated neck pain. Syncope was brief and with no modifiers. He now notes that he has tingling in all of his extremities and has some heaviness in his chest. He denies shortness of breath. No abdominal pain. No visual changes. Related Data Home Medications Medication Instructions Recorded Confirmed aspirin 81 mg tablet,delayed 81 mg PO DAILY #90 tab 05/13/20 04/23/21 release atorvastatin 20 mg tablet 20 mg PO QHS #90 tab 05/13/20 04/23/21 loperamide 2 mg tablet 2 mg PO Q6H PRN #30 tab 12/17/20 04/23/21 omeprazole 40 mg PO DAILY #30 cap 01/28/21 04/23/21 chlorthalidone 25 mg tablet 25 mg PO DAILY #90 tab 03/26/21 04/23/21 lisinopril 40 mg tablet 40 mg PO DAILY #90 tab 04/09/21 04/23/21 Previous Rx's Medication Instructions Recorded aspirin 81 mg tablet,delayed 81 mg PO DAILY #90 tab 05/13/20 release atorvastatin 20 mg tablet 20 mg PO QHS #90 tab 05/13/20 loperamide 2 mg tablet 2 mg PO Q6H PRN #30 tab 12/17/20 omeprazole 40 mg PO DAILY #30 cap 01/28/21 chlorthalidone 25 mg tablet 25 mg PO DAILY #90 tab 03/26/21 lisinopril 40 mg tablet 40 mg PO DAILY #90 tab 04/09/21 Allergies Allergy/AdvReac Type Severity Reaction Status Date / Time No Known Allergies Allergy Verified 04/23/21 15:44 General Stated Complaint: Dizzy/Sync OMAR: 2 Review of Systems <Dylon Bee MD - Last Filed: 04/27/21 22:32> All systems reviewed & are unremarkable except as noted in HPI and below Constitutional Constitutional: Denies fever(s) Cardiovascular Cardiovascular: Reports as per HPI Respiratory Respiratory: Reports as per HPI PFSH <Dylon Bee MD - Last Filed: 04/27/21 22:32> Medical History Alcohol intake above recommended sensible limits Chewing tobacco nicotine dependence Erectile dysfunction Erosive esophagitis (~01/2021) Esophageal reflux Gout HTN (hypertension) Hyperlipemia Hyperuricemia (09/27/17) Hypogonadism Lateral epicondylitis of left elbow Left knee pain Shoulder pain right Surgical History Colonoscopy - MAC 07/20/11 History of colonoscopy (~01/2021) History of esophagogastroduodenoscopy (EGD) (~01/2021) Family History Father , 52 Heart disease Myocardial infarction Stroke Cancer Mother Stroke Brother No problems noted. Son No problems noted. Daughter No problems noted. Social History Smoking/Tobacco Use Status: Current every day Tobacco Type: smokeless tobacco Smokeless tobacco user: chewing tobacco Quit status: considering quitting Second Hand Exposure: Yes Smoking risk assessment performed?: Yes Alcohol Intake: current Alcohol Intake frequency: 3 or more drinks per day Alcohol type: beer Details: 6 Beers a night Drug use: Never Substance use type: does not use Caregiver/Support person: No Household members: spouse Housing: house Communication Needs: None Pets and animals: Yes Pets and animals: cat(s), dog(s) and horse(s) Sexually active: Yes Do you think of yourself as: straight/heterosexual Current gender identity: male What is your relationship status?: How often do you talk on the phone with friends or family?: once per week How often do you get together with friends or relatives?: once per week How often do you attend roman catholic or restorationism services?: decline to answer Do you belong to any clubs or organized social groups?: no Panel score (0-1 are the most socially isolated patients): 1 What type of physical activity do you participate in: none Elisabeth/Yazdanism: None Agree to transfusion: No Seatbelt use: always Helmet use: Yes Drive intox or ride w/intox regional truck driver: No Do you feel safe at home: Yes Do you feel safe in your relationship?: Yes Exam <Dylon Bee MD - Last Filed: 04/27/21 22:32> Const General: cooperative and anxious HENMT Head: normocephalic and atraumatic Mouth: moist mucous membranes Eyes Conjunctivae: normal conjunctivae Sclera: normal sclerae Neck Neck: trachea midline and supple Resp Auscultation: clear to auscultation bilaterally, no rales, no rhonchi and no wheezes Cardio Rate: tachycardic Rhythm: regular rhythm GI Palpation: soft, not firm, no guarding, no masses, not rigid and nontender Skin General skin exam: no rashes or lesions noted Neuro General: patient alert, patient awake, patient oriented x3 and tone normal Extrem General: no calf tenderness Psych Appearance: grossly normal Mental Status: mental status grossly normal Speech and Movement: speech and movement normal Course <Dylon Bee MD - Last Filed: 04/27/21 22:32> Vital Signs Vital signs: Vital Signs Temperature 36.9 C 04/19/21 18:10 Pulse 104 H 04/19/21 18:10 Respiratory Rate 20 04/19/21 18:10 Blood Pressure 122/69 04/19/21 18:10 Pulse Oximetry 93 04/19/21 18:10 Temperature 35.9 C L 04/19/21 19:20 Temperature Source Oral 04/19/21 19:20 Pulse 115 H 04/19/21 19:20 Respiratory Rate 23 04/19/21 19:20 Respiratory Effort 04/19/21 18:16 Blood Pressure 162/89 H 04/19/21 19:20 Blood Pressure Position Supine 04/19/21 18:10 Pulse Oximetry 100 04/19/21 19:20 Oxygen Delivery Method Room Air 04/19/21 19:20 Oxygen Flow Rate 0 04/19/21 19:20 Lab/Test Results Lab/Test Results: Laboratory Tests Range/Units 04/19/21 04/19/21 18:45 18:45 WBC (4.4-10.8) 10^3/uL 7.84 RBC (4.36-5.78) 10^6/uL 4.19 L Hgb (13.5-17.5) g/dL 13.4 L Hct (40.0-50.0) % 39.0 L MCV (80-95) fL 93.1 MCH (27.0-33.0) pg 32.0 MCHC (32.0-36.0) % 34.4 RDW (11.8-14.1) % 11.0 L Plt Count (130-400) 10^3/uL 350 MPV (8.0-11.0) fL 9.9 Immature Gran % 1.0 Neutrophils % 69.6 Lymphocytes % 21.8 Monocytes % 6.1 Eosinophils % 0.6 Basophils % 0.9 Nucleated RBC % % 0 Absolute Neutrophils (1.2-6.7) 10^3/uL 5.45 Absolute Lymphocytes (1.2-3.4) 10^3/uL 1.71 Absolute Monocytes (0.1-0.8) 10^3/uL 0.48 Absolute Eosinophils (0.0-0.7) 10^3/uL 0.05 Absolute Basophils (0.0-0.2) 10^3/uL 0.07 Ethyl Alcohol (<3) mg/dL 91.0 Sign Out <Dylon Bee MD - Last Filed: 04/27/21 22:32> Sign Out Data: Sign Out Comment: Delta troponin and repeat EKG pending at 2145. Patient receiving additional IV fluid bolus and heart rate and symptoms should be reassessed. Last updated by Dylon Bee MD at 04/19/21 20:37 PAWSS <Dylon Bee MD - Last Filed: 04/27/21 22:32> Have you Ever Experienced Previous Episodes of Alcohol Withdrawal?: No Have you ever Experienced Withdrawal Seizures?: No Have you ever Experienced Delirium Tremens(DT)s?: No Have you ever undergone Alcohol Rehabilitation Treatment (i.e, inpt ot outpatient treatment programs)?: No Have you ever Experienced Blackouts?: No Have you ever Combined Alcohol with other Downers within the last 90 days?: No Have you ever Combined Alcohol with any other Substance of Abuse during the last 90 days?: No Result: 0
[2021-04-19 19:33] LABS: Troponin I < 0.05 ng/mL (<0.06)
[2021-04-19 19:41] LABS: D-Dimer 99 ng/mlFEU (<500)
--- NOTE | 2021-04-19 19:59 | DI.VRAD_ITS ---
PROCEDURE INFORMATION: Exam: CT Head Without Contrast Exam date and time: 04/19/2021 6:59 PM Age: 46 years old Clinical indication: Injury or trauma; Blunt trauma (contusions or hematomas); Consciousness not specified; Injury date: 04/19/21; Injury details: Fall, CUNHA. Head trauma; Patient HX: HX of skull FX and a vertebrae, PT unsure which one TECHNIQUE: Imaging protocol: Computed tomography of the head without contrast. Total images: 2109 Radiation optimization: All CT scans at this facility use at least one of these dose optimization techniques: automated exposure control; mA and/or kV adjustment per patient size (includes targeted exams where dose is matched to clinical indication); or iterative reconstruction. COMPARISON: No relevant prior studies available. FINDINGS: Brain: Normal. No hemorrhage. Unremarkable white matter. No mass effect. Cerebral ventricles: No ventriculomegaly. Paranasal sinuses: Mucous retention cyst in the left maxillary antrum. No fluid levels. Mastoid air cells: Visualized mastoid air cells are well aerated. Bones/joints: Unremarkable. No acute fracture. Soft tissues: Unremarkable. IMPRESSION: No acute intracranial abnormality. PROCEDURE INFORMATION: Exam: CT Cervical Spine Without Contrast Exam date and time: 04/19/2021 6:59 PM Age: 46 years old Clinical indication: Injury or trauma; Blunt trauma (contusions or hematomas); Consciousness not specified; Injury date: 04/19/21; Injury details: Fall, CUNHA. Head trauma; Patient HX: HX of skull FX and a vertebrae, PT unsure which one TECHNIQUE: Imaging protocol: Computed tomography images of the cervical spine without contrast. Radiation optimization: All CT scans at this facility use at least one of these dose optimization techniques: automated exposure control; mA and/or kV adjustment per patient size (includes targeted exams where dose is matched to clinical indication); or iterative reconstruction. COMPARISON: No relevant prior studies available. FINDINGS: Bones/joints: Alignment is normal. Chronic left occipital condyle fracture noted. No acute fracture or subluxation. Discs/Spinal canal/Neural foramina: No severe spinal canal stenosis. No severe bony neural foraminal narrowing. Lungs: Lung apices are normal. Soft tissues: Unremarkable. IMPRESSION: 1. Chronic left occipital condyle fracture. 2. No acute fracture or subluxation. Dictated and Authenticated by: Braydon Irizarry MD. Ordering:LEIDA Osborne MD
--- NOTE | 2021-04-19 20:30 | RT.EKG_ITS ---
APPROVED REPORT Exam: Resting ECG Reason for Exam: syncope Patient Location: E HR:95 bpm ECG Measurements Heart Rate 95 AXIS WI 171 P 21 QRSd 102 QRS 9 QT 373 T 12 QTc 469 Conclusion Sinus rhythm...normal P axis, V-rate 60- [address] elevation, lateral leads...ST >0.06mV, I aVL V5 V6 PHysician: no stemi, notable artiact from patient tremor. otherwise stable from prior ekg
[2021-04-19 20:51] LABS: Source Nasal/Nares
--- NOTE | 2021-04-19 21:53 | DI.VRAD_ITS ---
PROCEDURE INFORMATION: Exam: XR Chest Exam date and time: 04/19/2021 19:42 Age: 46 years old Clinical indication: Other: Chest pressure; Additional info: HX of skull FX and a vertebrae, PT unsure which one TECHNIQUE: Imaging protocol: XR of the chest. Views: 2 views. COMPARISON: CR CHEST 2 VIEWS PA,LAT 02/13/2018 08:43 FINDINGS: Lungs: No consolidation. Pleural spaces: No pleural effusion. No pneumothorax. Heart/Mediastinum: No cardiomegaly. Bones/joints: No acute fracture. IMPRESSION: No acute cardiopulmonary pathology. Dictated and Authenticated by: Marlene Christian MD. Ordering:LEIDA Osborne MD
[2021-04-19 21:59] LABS: COVID-19 PCR Negative (Negative)
[2021-04-19] MEDS: Ketorolac 15 MG/ML VIAL IVP (22:03)
[2021-04-19 22:12] LABS: Troponin I < 0.05 ng/mL (<0.06)
[2021-04-19] MEDS: MAGNESIUM SULFATE 8.12 MEQ, MULTIVITAMIN 10 ML, THIAMINE 100 MG, FOLIC ACID 1 MG in Nor... 168.867 MG IV (23:01)
--- NOTE | 2021-04-19 23:24 | W.PM.HP.N ---
Date of service: 04/19/21 Time of Service: 23:24 Assessment and Plan Assessment and plan (1) Ataxia: Status: Acute Assessment and plan: Symptoms are notably orthostatic, without drop in blood pressure. I suspect this is some atypical manifestation of a post concussive syndrome. It is possible that alcohol withdrawal may be playing some role but my sense is that this is not likely. Unusual toxicity of Sildenafil also possible but he states he has never had this trouble before so I think this too is unlikely. Vertigo, either central or peripheral, is also possible, but his otherwise normal exam and negative head CT are reassuring to a good degree. Will plan on monitoring overnight and see how he is in the morning. Will place on CIWA in interim. If symptoms persist would consider MRI and neuro consult. History of Present Illness History of Present Illness Chief Complaint: syncope Narrative: 46 male. Took Viagra 50 prior to intercourse earlier this evening. Went to sleep afterwards and then suddenly jumped up, felt light headed and fell to floor, striking his head. No LOC. In ER w/u includes negative head CT, normal EKG, neg trop x 2. Na 130, alcohol 91, AST 92, ALT 115. Drinks approx 6 pack/day but has never had any withdrawal issues. Patient was noted to be markedly tremulous and ataxic when attempting to stand, slight nausea. Given Ativan 2 IV, Toradol, Zofran, Thiamine and banana bag. I was asked to evaluate for admission. Review of Systems All systems reviewed & are unremarkable except as noted in HPI and below PFSH Medical History Alcohol intake above recommended sensible limits Chewing tobacco nicotine dependence Erectile dysfunction Erosive esophagitis (~01/2021) Esophageal reflux Gout HTN (hypertension) Hyperlipemia Hyperuricemia (09/27/17) Hypogonadism Lateral epicondylitis of left elbow Left knee pain Shoulder pain right Surgical History Colonoscopy - [facility] [place] History of colonoscopy (~01/2021) History of esophagogastroduodenoscopy (EGD) (~01/2021) Family History Father , 52 Heart disease Myocardial infarction Stroke Cancer Mother Stroke Brother No problems noted. Son No problems noted. Daughter No problems noted. Social History Smoking/Tobacco Use Status: Current every day Tobacco Type: smokeless tobacco Smokeless tobacco user: chewing tobacco Quit status: considering quitting Second Hand Exposure: Yes Smoking risk assessment performed?: Yes Alcohol Intake: current Alcohol Intake frequency: 3 or more drinks per day Alcohol type: beer Details: 6 Beers a night Drug use: Never Substance use type: does not use Caregiver/Support person: No Household members: spouse Housing: house Communication Needs: None Pets and animals: Yes Pets and animals: cat(s), dog(s) and horse(s) Sexually active: Yes Do you think of yourself as: straight/heterosexual Current gender identity: male What is your relationship status?: How often do you talk on the phone with friends or family?: once per week How often do you get together with friends or relatives?: once per week How often do you attend latter-day or episcopal services?: decline to answer Do you belong to any clubs or organized social groups?: no Panel score (0-1 are the most socially isolated patients): 1 What type of physical activity do you participate in: none Elisabeth/Sikh: None Agree to transfusion: No Seatbelt use: always Helmet use: Yes Drive intox or ride w/intox cdl bulk driver: No Do you feel safe at home: Yes Do you feel safe in your relationship?: Yes Meds Allergies and Home Medications Allergies Allergy/AdvReac Type Severity Reaction Status Date / Time No Known Allergies Allergy Verified 04/09/21 15:41 Home Medications Medication Instructions Recorded Confirmed Type aspirin 81 mg tablet,delayed 81 mg PO DAILY #90 tab 05/13/20 04/19/21 Rx release atorvastatin 20 mg tablet 20 mg PO QHS #90 tab 05/13/20 04/19/21 Rx sildenafil 50 mg tablet 50 mg PO DAILY PRN #5 tab 08/06/20 04/19/21 Rx loperamide 2 mg tablet 2 mg PO Q6H PRN #30 tab 12/17/20 04/19/21 Rx omeprazole 40 mg PO DAILY #30 cap 01/28/21 04/19/21 Rx chlorthalidone 25 mg tablet 25 mg PO DAILY #90 tab 03/26/21 04/19/21 Rx lisinopril 40 mg tablet 40 mg PO DAILY #90 tab 04/09/21 04/19/21 Rx Exam Narrative Exam Narrative: 133/86, 94, 36.8, 17, 93% RA. BP 140/89 when I stand the patient. HEENT atraumatic; neck supple; lungs clear; heart RRR; abdomen soft and NT; extremities w/o edema; neuro Ox3, lucid, CN intact, slight resting tremor, strength 5/5, sensory intact touch; gait ataxic, unable to stand independently Results Labs Result diagrams: 04/19/21 18:45 04/19/21 18:45 Labs: Laboratory Results - last 24 hr 04/19/21 04/19/21 04/19/21 18:45 18:45 18:45 WBC 7.84 RBC 4.19 L Hgb 13.4 L Hct 39.0 L MCV 93.1 MCH 32.0 MCHC 34.4 RDW 11.0 L Plt Count 350 MPV 9.9 Immature Gran % 1.0 Neutrophils % 69.6 Lymphocytes % 21.8 Monocytes % 6.1 Eosinophils % 0.6 Basophils % 0.9 Nucleated RBC % 0 Absolute Neutrophils 5.45 Absolute Lymphocytes 1.71 Absolute Monocytes 0.48 Absolute Eosinophils 0.05 Absolute Basophils 0.07 D-Dimer Sodium 130 L Potassium 3.7 Chloride 91 L Carbon Dioxide 25.9 Anion Gap 13.1 H BUN 16 Creatinine 1.2 Estimated GFR/1.73 m2 >= 60.00 Glucose 117 H Calcium 9.3 Magnesium 2.5 H Total Bilirubin 0.6 AST 92 H ALT 115 H Alkaline Phosphatase 92 Troponin I < 0.05 Total Protein 8.2 Albumin 4.5 Ethyl Alcohol 91.0 COVID-19 Source SARS-CoV-2 (PCR) 04/19/21 04/19/21 04/19/21 18:45 20:50 21:45 WBC RBC Hgb Hct MCV MCH MCHC RDW Plt Count MPV Immature Gran % Neutrophils % Lymphocytes % Monocytes % Eosinophils % Basophils % Nucleated RBC % Absolute Neutrophils Absolute Lymphocytes Absolute Monocytes Absolute Eosinophils Absolute Basophils D-Dimer 99 Sodium Potassium Chloride Carbon Dioxide Anion Gap BUN Creatinine Estimated GFR/1.73 m2 Glucose Calcium Magnesium Total Bilirubin AST ALT Alkaline Phosphatase Troponin I < 0.05 Total Protein Albumin Ethyl Alcohol COVID-19 Source Nasal/Nares SARS-CoV-2 (PCR) Negative Last Vital Signs Temp 36.8 C 04/19/21 21:52 Pulse 94 H 04/19/21 21:52 Resp 17 04/19/21 19:45 BP 133/86 04/19/21 21:52 Pulse Ox 93 04/19/21 21:52 PAWSS Have you Ever Experienced Previous Episodes of Alcohol Withdrawal?: No Have you ever Experienced Withdrawal Seizures?: No Have you ever Experienced Delirium Tremens(DT)s?: No Have you ever undergone Alcohol Rehabilitation Treatment (i.e, inpt ot outpatient treatment programs)?: No Have you ever Experienced Blackouts?: No Have you ever Combined Alcohol with other Downers within the last 90 days?: No Have you ever Combined Alcohol with any other Substance of Abuse during the last 90 days?: No Result: 0
[2021-04-20] VITALS (21 sets, daily range): BP systolic 113–139; BP diastolic 63–97; PULSE 73–108; RESP 11–22; TEMP 36.5–36.6; O2SAT 94–98
--- NOTE | 2021-04-20 | DI.MRI_ITS ---
Exam(s) MR ANGIO BRAIN WO EXAM: MR ANGIO BRAIN WO INDICATION: syncope tremors, ataxia. COMPARISON: No exams were available for comparison TECHNIQUE: MR angiography of the jbvjim-wd-Djybyd region was performed utilizing 3D zzbs-tn-xdeyde i maging. FINDINGS: The visualized internal carotid arteries appear intact, no aneurysm, stenosis, or dissection. Visualized vertebral arteries appear intact, no aneurysm, stenosis or dissection. Basilar artery appears normal, no aneurysm, stenosis, or dissection. The anterior cerebral arteries and major branch vessels appear intact. No aneurysm, stenosis, or dis section. The middle cerebral arteries and major branch vessels appear intact. No aneurysm, stenosis, or disse ction. The posterior cerebral arteries and major branch vessels appear intact. No aneurysm, stenosis, or di ssection. IMPRESSION: Negative MR angiography, dkemcw-lv-Hwiwor region.
--- NOTE | 2021-04-20 | DI.MRI_ITS ---
Exam(s) MR BRAIN WO EXAM: MR BRAIN WO CLINICAL HISTORY: syncope, ataxia, tremors. TECHNIQUE: Multiplanar multisequence MRI of the brain was performed. COMPARISON: No exams were available for comparison FINDINGS: The ventricular system is normal in appearance. No signal abnormality identified in the brain. The orbital and temporal bone structures appear intact as does the pituitary. Diffusion weighted imaging shows no evidence of infarction. Susceptibility weighted imaging shows no evidence of intracranial hemorrhage. There is normal flow void in the [place] vasculature. IMPRESSION: Normal brain MRI DATA REPOSITORY:
--- NOTE | 2021-04-20 | DI.MRI_ITS ---
Exam(s) MR ANGIO NECK WO EXAM: MR ANGIO NECK WO CLINICAL HISTORY: syncope, ataxia tremors. TECHNIQUE: Multiplanar multisequence MRI was performed. COMPARISON: No exams were available for comparison FINDINGS: MR angiography of the cervical region was performed according to usual protocol utilizing 2D and 3D t hwr-wl-fmumav imaging. There are typical flow artifacts in the proximal internal carotid arteries bi laterally. Otherwise the lumens of the common and internal carotid arteries appear well maintained f rom the level of the aortic arch to level of the skull base. Visualized portions the vertebral arter ies appear well as to the level of the skull base. IMPRESSION: Negative MR angiography cervical region. DATA REPOSITORY:
[2021-04-20] MEDS: Atorvastatin 20 MG TAB PO (00:59)
[2021-04-20] MEDS: Lactated Ringers 1,000 ML 75 ML IV (05:35)
[2021-04-20 07:16] LABS: ALT 90 U/L (16-63); AST 66 U/L (15-37); Anion Gap 8.6 mmol/L (3-11); BUN 13 mg/dL (7-18); CO2 27.4 mmol/L (21.0-32.0); CREATININE 1.1 mg/dL (0.70-1.30); Calcium 8.7 mg/dL (8.5-10.1); Chloride 101 mmol/L (98-107); Glucose 94 mg/dL (74-106); Potassium 3.9 mmol/L (3.5-5.1); Sodium 137 mmol/L (136-145)
[2021-04-20] MEDS: Lisinopril 20 MG TAB 40 MG PO (07:42)
[2021-04-20] MEDS: Omeprazole 20 MG CAPCR 40 MG PO (07:42)
[2021-04-20] MEDS: Aspirin E.C. 81 MG TABEC PO (07:43)
--- NOTE | 2021-04-20 09:08 | PDOC.CMIN ---
- If Service Date Differs Date of service: 04/20/21 Time of Service: 09:08 Care Management Initial Assess REASON FOR HOSPITALIZATION:: ataxia PAST MEDICAL HISTORY/PAST SURGICAL HISTORY:: Medical History . Alcohol intake above recommended sensible limits. Chewing tobacco nicotine dependence. Erectile dysfunction. Erosive esophagitis (~01/2021). Esophageal reflux. Gout. HTN (hypertension). Hyperlipemia. Hyperuricemia (09/27/17). Hypogonadism. Lateral epicondylitis of left elbow. Left knee pain. Shoulder pain. right. Surgical History . Colonoscopy - [facility]. 07/20/11. History of colonoscopy (~01/2021). History of esophagogastroduodenoscopy (EGD) (~01/2021) PREVIOUS FUNCTIONAL STATUS/SOCIAL/FAMILY SUPPORTS:: Felice lives in [place], [place] with his Courtney. CURRENT FUNCTIONAL STATUS:: Felice was preparing to be discharged when CM met with him. His was present and they denied the need for any services at home. ADVANCE DIRECTIVES:: none on file Has patient been provided with info about the portal/API?: Yes Did the patient sign up for the portal?: No CODE STATUS:: Full Code INSURANCE COVERAGE / FINANCIAL ISSUES:: [employer]ISC/[employer] CURRENT HOME/COMMUNITY SERVICES/EQUIPMENT:: none currently PRIMARY CARE PHYSICIAN:: Dino Cutler POTENTIAL DISCHARGE NEEDS:: Followup with PCP and plan of care PATIENT/FAMILY EDUCATION NEEDS:: Review of discharge instructions,medications, limitations, activity, follow up plan, Ask Me Three TRANSPORTATION:: via private vehicle with family PLAN:: Felice will be discharged home with no new services. He will follow up with his community providers and plan of care and transport with his .
--- NOTE | 2021-04-20 11:21 | IN_ITS ---
PT Notes Visit Reasons: Ataxia Physical Therapy Inpatient Initial Evaluation Date: 04/20/2020 Referring Doctor: Alfa Weaver MD PT Orders: PT CONSULT: Fall safety assessment. Evaluate and treat ataxia Precautions: Fall. Standard. Activity as tolerated. Patient Profile/Admitting Diagnosis: Lois is a 46-year-old male who presented to ED on 04/19/2020 due to episode syncopal episode and headache related to aftereffects of the use of PDE?5 inhibitor. Patient is diagnosed with post- concussion syndrome with CT findings showing negative for any acute abnormality. PMHX: Medical History Alcohol intake above recommended sensible limits Chewing tobacco nicotine dependence Erectile dysfunction Erosive esophagitis (~01/2021) Esophageal reflux Gout HTN (hypertension) Hyperlipemia Hyperuricemia (09/27/17) Hypogonadism Lateral epicondylitis of left elbow Left knee pain Shoulder pain right Surgical History Colonoscopy - [facility] 07/20/11 History of colonoscopy (~01/2021) History of esophagogastroduodenoscopy (EGD) (~01/2021) Social History/Home Situation: Equipment Owned/DME: Lives with in a private home with 3 steps to enter with rails on B sides. Another 5-6 steps lead to the bedroom of the house. 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 Subjective: Reports mild frontal headache. States that the tremors he has been having in his B UE and LE are new since he fell and hit his head twice when he had the fainting episode. Stresses that the amount of alcohol he consumed were not more than what he was used to. Denies SOB during ambulation activity. Objective: General Observation: IV in R UE. Telemetry monitoring in place. Supine in ICU bed. Mental Status: Alert and oriented as to person, place, time, and purpose. Able to pay attention, focus, and respond appropriately. Pain: 4/10 in frontal area Vital Signs: RR low of 6 cycles per minute and high of 14 cpm ROM: Right Upper Extremity: Shoulder Flexion WFL. Shoulder abduction WFL. Elbow flexion WFL. Wrist flexion WFL. Functional opening and closing of hand WFL. Left Upper Extremity: Shoulder Flexion WFL. Shoulder abduction WFL. Elbow flexion WFL. Wrist flexion WFL. Functional opening and closing of hand WFL. Right Lower Extremity: Hip flexion WFL. Hip abduction WFL. Knee flexion WFL. Ankle dorsiflexion WFL. Ankle plantarflexion WFL. Left Lower Extremity: Hip flexion WFL. Hip abduction WFL. Knee flexion WFL. Ankle dorsiflexion WFL. Ankle plantarflexion WFL. Strength: Right Upper Extremity: Shoulder flexors 5/5. Shoulder abductors 5/5. Elbow flexors 5/5. Elbow extensors 5/5. Contracting Analyst strong. Left Upper Extremity: Shoulder flexors 5/5. Shoulder abductors 5/5. Elbow flexors 5/5. Elbow extensors 5/5. Contracting Analyst strong. Right Lower Extremity: Hip flexors 4/5. Hip abductors 5/5. Knee flexors 5/5. Knee extensors 4/5. Ankle dorsiflexors 5/5. Ankle plantarflexors 5/5. Left Lower Extremity: Hip flexors 4/5. Hip abductors 5/5. Knee flexors 5/5. Knee extensors 4/5. Ankle dorsiflexors 5/5. Ankle plantarflexors 5/5. Bed Mobility/Transfers: Rolling independent Supine to sit independent Sit to supine independent Sit to stand supervision Stand to sit supervision Gait: Instructed patient with level surface ambulation of 400 feet requiring supervision assist with no assistive device. No tremors in B UE/LE observed. No LOB. Frontal headache persistent but intensity remains at 3-4/10 Stairs: Up and down 6 x 4 steps and 4 x 6 steps while holding onto 1 rail with supervision only. Step over step pattern. Balance: Static Sitting: Normal Dynamic Sitting: Normal Static Standing: Normal Dynamic Standing: Normal Special Tests: Mobility Limitations Standardized Measure [facility] AM-PAC 6 clicks Basic Mobility Inpatient Short Form: Raw Score: 24 CMS Score: 0% deficit Informed Consent/Education: Patient was instructed in purpose of PT consult Assessment: PT initial evaluation only. No services needed at this time. Tremors precipitated by mobility performance but then did not limit safety of transfers and ambulation. May go home when cleared by hospitalist with no need for any PT services. Patient is assessed as a 15823 low complexity based on the following: History: 38-year-old male with past medical history as indicated above Examination: Demonstrable impairment in strength, balance, and mobility level with underlying impairments and functional limitations as exhibited above as well as deficit score of 0% utilizing the [facility] [place] Mobility I npatient Short Form Presentation: Stable Decision Makin low complexity Goals: N/A PT evaluation only and 1 treatment session only for functional mobility retraining. Plan of Care/Treatment Plan: N/A PT evaluation only and 1 treatment session only for functional mobility retraining. DISCHARGE RECOMMENDATIONS: Home when medically cleared by hospitalist. No assistive ambulatory device needed. No home health PT services required at this time. TREATMENT CODE/TIME: 41886 x 20 minutes, [id number] x 18 minutes beginning at 11:21 AM. Thank you for the opportunity to participate in the care of this patient. Charity Amezcua PT, DPT, CLT [facility] [place], [place]
--- NOTE | 2021-04-20 15:48 | DSE_ITS ---
Date of service: 04/20/21 Time of Service: 15:48 DS: Diagnosis Discharge Diagnosis (1) Ataxia: Status: Acute Discharge Plan Disposition Patient Disposition: HOME Condition: Stable Discharge Details Reason For Visit: Ataxia Admit Date/Time: 04/19/21 23:46 Admit Provider: Albin Harris Attending Provider: Albin Harris Primary Care Provider: Dino Cutler Hospital Course Hospital Course: This is a 46 male who took Viagra 50 mg prior to intercourse, who went to sleep afterwards and then suddenly jumped up, felt light headed and fell to floor, striking his head, denies LOC. Work up in the ED includes negative head CT, normal EKG, neg trop x 2. Na 130, alcohol 91, AST 92, ALT 115. He drinks approx 6 pack/day but has never had any withdrawal issues. Patient was noted to be markedly tremulous and ataxic when attempting to stand, slight nausea. He was given Ativan 2 IV, Toradol, Zofran, Thiamine and banana bag and admitted overn [facility] on hospitalist services. HE remained medically stable, orthostatic vitals negative, not scoring on CIWA, he remained in normal sinus rhythm. he did have a few episodes of upper extremity tremors but they were self limiting and resolved quickly. there was no altered or loss of consciousness. He vitals remained stable. he unwent MRI/MRA head and neck with no findings. He will be discharged to home and will f/u with pcp outpatient. he states he has an appointment this . advised to return here sooner for new or worsening symptoms. discussed with DR Chaudhari [place] Meds and New Rx's Prescriptions: Continued loperamide [Imodium A-D] 2 mg tablet 2 mg PO Q6H PRN (Reason: loose stool) Qty: 30 RF: 0 aspirin [Adult Low Dose Aspirin] 81 mg tablet,delayed release (DR/EC) 81 mg PO DAILY Qty: 90 RF: 3 atorvastatin 20 mg tablet 20 mg PO QHS Qty: 90 RF: 3 chlorthalidone 25 mg tablet 25 mg PO DAILY Qty: 90 RF: 4 lisinopril 40 mg tablet 40 mg PO DAILY Qty: 90 RF: 4 omeprazole 40 mg capsule,delayed release(DR/EC) 40 mg PO DAILY Qty: 30 RF: 3 Discontinued sildenafil [Viagra] 50 mg tablet 50 mg PO DAILY PRN (Reason: sexual activity) Qty: 5 RF: 5 Discharge Instructions Instructions: Syncope (DC) Additional Instructions: discuss with pcp when to resume viagra. drink 6-8 glasses of water to stay well hydrated. Referrals: Dino Cutler, [employer] [Primary Care Provider] - Activity:: Activity as Tolerated Equipment/Supplies:: No Equipment Needed Diet:: As Tolerated Discharge Orders Discharge Orders: Discharge Order (Routine); Ordered 04/20/21 Ordered By: Yudith Claros DS: Summary Time Spent with Patient providing and/or coordinating discharge services: Less than 30 minutes Status at Discharge Functional status at discharge: independent ambulation Overall status at discharge: patient is back to baseline Mental Status: mental status grossly normal Speech and Movement: speech and movement normal Mood: congruent mood Affect: normal affect Exam Const General: cooperative, comfortable and no acute distress Nutritional Appearance: average body habitus Orientation: alert, awake and oriented x3 HENMT Head: normal to inspection, normocephalic and atraumatic Face and sinus: normal facial exam Mouth: oral mucosae normal Neck Neck: normal visual inspection Resp Effort & Inspection: normal respiratory effort Auscultation: clear to auscultation bilaterally Cardio Rate: regular rate Rhythm: regular rhythm GI Inspection: normal to inspection Palpation: soft and nontender Skin General skin exam: no rashes or lesions noted Neuro General: patient alert, patient awake, patient oriented x3 and no focal motor deficits Extrem General: normal to inspection, full ROM and no pedal edema Psych Mental Status: mental status grossly normal Speech and Movement: speech and movement normal Mood: congruent mood Affect: normal affect Attitude: cooperative Thought Process: normal Thought Content: normal Insight: insight good Judgment: judgment good DS: Data Vitals/I&O Vitals and I&O: Vital Signs Temperature 36.6 C 04/20/21 07:43 Temperature Source Temporal Artery Scan 04/20/21 07:43 Pulse 77 04/20/21 14:31 Pulse Rhythm Regular 04/20/21 07:48 Pulse 84 04/20/21 14:31 Respiratory Rate 20 04/20/21 14:31 Respiratory Effort Non-Labored 04/20/21 07:48 Respiratory Depth Normal 04/20/21 07:48 Respiratory Pattern Normal 04/20/21 07:48 Blood Pressure 128/83 04/20/21 14:31 Blood Pressure Mean 93 04/20/21 14:31 Blood Pressure Position Supine 04/20/21 00:25 Pulse Oximetry 95 04/20/21 14:31 Oxygen Delivery Method Room Air 04/20/21 00:25 Oxygen Flow Rate 0 04/20/21 00:25 Pain Level 5 04/20/21 07:43 Comment 04/20/21 07:59 Intake & Output 04/19/21 04/20/21 04/20/21 23:59 11:59 23:59 Intake Total 2530 / 2770 240 / 2770 Output Total 4525 / 4525 Balance -1994 / 240 / -5 Weight 80.739 kg 77.4 kg Intake: IV 2160 / 2160 Oral 370 / 610 240 / 610 Output: Urine 4525 / 4525 Other: Urine Color Pale Yellow Urine Appearance Clear Urine Odor Normal Comment Unable to measure due to stool. Stool Occult Blood Negative Stool Size Moderate Stool Characteristics Liquid Mucoid Black Green Voiding Methods Urinal Data Completed and Pending Labs on day of discharge: Labs from last 24 hours 04/20/21 04/19/21 04/19/21 06:06 21:45 20:50 WBC RBC Hgb Hct MCV MCH MCHC RDW Plt Count MPV Immature Gran % Neutrophils % Lymphocytes % Monocytes % Eosinophils % Basophils % Nucleated RBC % Absolute Neutrophils Absolute Lymphocytes Absolute Monocytes Absolute Eosinophils Absolute Basophils D-Dimer Sodium 137 Potassium 3.9 Chloride 101 Carbon Dioxide 27.4 Anion Gap 8.6 BUN 13 Creatinine 1.1 Estimated GFR/1.73 m2 >= 60.00 Glucose 94 Calcium 8.7 Magnesium Total Bilirubin AST 66 H ALT 90 H Alkaline Phosphatase Troponin I < 0.05 Total Protein Albumin Ethyl Alcohol COVID-19 Source Nasal/Nares SARS-CoV-2 (PCR) Negative 04/19/21 04/19/21 04/19/21 18:45 18:45 18:45 WBC 7.84 RBC 4.19 L Hgb 13.4 L Hct 39.0 L MCV 93.1 MCH 32.0 MCHC 34.4 RDW 11.0 L Plt Count 350 MPV 9.9 Immature Gran % 1.0 Neutrophils % 69.6 Lymphocytes % 21.8 Monocytes % 6.1 Eosinophils % 0.6 Basophils % 0.9 Nucleated RBC % 0 Absolute Neutrophils 5.45 Absolute Lymphocytes 1.71 Absolute Monocytes 0.48 Absolute Eosinophils 0.05 Absolute Basophils 0.07 D-Dimer 99 Sodium Potassium Chloride Carbon Dioxide Anion Gap BUN Creatinine Estimated GFR/1.73 m2 Glucose Calcium Magnesium Total Bilirubin AST ALT Alkaline Phosphatase Troponin I Total Protein Albumin Ethyl Alcohol 91.0 COVID-19 Source SARS-CoV-2 (PCR) 04/19/21 18:45 WBC RBC Hgb Hct MCV MCH MCHC RDW Plt Count MPV Immature Gran % Neutrophils % Lymphocytes % Monocytes % Eosinophils % Basophils % Nucleated RBC % Absolute Neutrophils Absolute Lymphocytes Absolute Monocytes Absolute Eosinophils Absolute Basophils D-Dimer Sodium 130 L Potassium 3.7 Chloride 91 L Carbon Dioxide 25.9 Anion Gap 13.1 H BUN 16 Creatinine 1.2 Estimated GFR/1.73 m2 >= 60.00 Glucose 117 H Calcium 9.3 Magnesium 2.5 H Total Bilirubin 0.6 AST 92 H ALT 115 H Alkaline Phosphatase 92 Troponin I < 0.05 Total Protein 8.2 Albumin 4.5 Ethyl Alcohol COVID-19 Source SARS-CoV-2 (PCR) [facility] Medical History Alcohol intake above recommended sensible limits Chewing tobacco nicotine dependence Erectile dysfunction Erosive esophagitis (~01/2021) Esophageal reflux Gout HTN (hypertension) Hyperlipemia Hyperuricemia (09/27/17) Hypogonadism Lateral epicondylitis of left elbow Left knee pain Shoulder pain right Surgical History Colonoscopy - MAC 07/20/11 History of colonoscopy (~01/2021) History of esophagogastroduodenoscopy (EGD) (~01/2021) Family History Father , 52 Heart disease Myocardial infarction Stroke Cancer Mother Stroke Brother No problems noted. Son No problems noted. Daughter No problems noted. Social History Smoking/Tobacco Use Status: Current every day Tobacco Type: smokeless tobacco Smokeless tobacco user: chewing tobacco Quit status: considering quitting Second Hand Exposure: Yes Smoking risk assessment performed?: Yes Alcohol Intake: current Alcohol Intake frequency: 3 or more drinks per day Alcohol type: beer Details: 6 Beers a night Drug use: Never Substance use type: does not use Caregiver/Support person: No Household members: spouse Housing: house Communication Needs: None Pets and animals: Yes Pets and animals: cat(s), dog(s) and horse(s) Sexually active: Yes Do you think of yourself as: straight/heterosexual Current gender identity: male What is your relationship status?: How often do you talk on the phone with friends or family?: once per week How often do you get together with friends or relatives?: once per week How often do you attend sikhism or zoroastrian services?: decline to answer Do you belong to any clubs or organized social groups?: no Panel score (0-1 are the most socially isolated patients): 1 What type of physical activity do you participate in: none Elisabeth/Christian: None Agree to transfusion: No Seatbelt use: always Helmet use: Yes Drive intox or ride w/intox frontload driver: No Do you feel safe at home: Yes Do you feel safe in your relationship?: Yes
[2021-04-20] MEDS: Acetaminophen 500 MG TAB 1000 MG PO (15:52)
== END 2021-04-20 17:11 | disposition home or self-care (01) ==
LOC: ER 23:52 → ICU 04-20 10:32
PROVIDERS: Student in an Organized Health Care Education/Training Program; Admitting Provider General Practice; Emergency Provider Student in an Organized Health Care Education/Training Program; PCP Nurse Practitioner Family; Visit Provider General Practice
DX: R27.0 Ataxia, unspecified (principal); I10 Essential (primary) hypertension; E78.5 Hyperlipidemia, unspecified; M10.9 Gout, unspecified; K20.80 Other esophagitis without bleeding; Z72.0 Tobacco use; Z20.822 Contact with and (suspected) exposure to COVID-19; R25.1 Tremor, unspecified; R42 Dizziness and giddiness; W18.39XA Other fall on same level, initial encounter; Z79.899 Other long term (current) drug therapy
CPT/HCPCS: 36415; 36416; 70544; 70547; 80048; 80053; 82962; 87635; 93005; 96361; 96365; 96375; 97161; 97530; 99285; 70450; 70551; 71046; 72125; 80320; 83735; 84450; 84460; 84484; 85025; 85379; 93010; 99217; 99219; G0378; J1885; J2060; J2405

== ENCOUNTER 2021-06-22 17:46 | Outpatient (REF) | payer OTHER, SELFPAY ==
[2021-06-24 15:44] LABS: COVID-19 RT-PCR UVMMC Result Negative (Negative)
== END 2021-06-22 17:47 | disposition home or self-care (01) ==
LOC: LBN 17:46
PROVIDERS: PCP Nurse Practitioner Family; Visit Provider Nurse Practitioner Family
DX: Z20.822 Contact with and (suspected) exposure to COVID-19 (principal)
CPT/HCPCS: U0003

== ENCOUNTER 2022-06-08 04:02 | Outpatient (CLI) | payer BC, SELFPAY ==
[2022-06-08 13:13] LABS: CREATININE 1.2 mg/dL (0.70-1.30); Calculated LDL 187 mg/dL (<100); Cholesterol 268 mg/dL (<200); Estimated GFR 74.13 (mL/min/1.73m2); HDL Cholesterol 67 mg/dL (40-60); Potassium 4.1 mmol/L (3.5-5.1); Triglyceride 72 mg/dL (<150)
== END 2022-06-08 04:03 | disposition home or self-care (01) ==
LOC: LOS 04:02
PROVIDERS: PCP Nurse Practitioner Family; Visit Provider Nurse Practitioner Family
DX: E78.2 Mixed hyperlipidemia (principal); I10 Essential (primary) hypertension; Z13.1 Encounter for screening for diabetes mellitus
CPT/HCPCS: 36415; 80061; 82565; 83036; 84132

== ENCOUNTER 2022-06-15 10:04 | Outpatient (REF) | payer BC, SELFPAY ==
[2022-06-15 14:05] LABS: Uric Acid 9.3 mg/dL (3.5-7.2)
== END 2022-06-15 10:05 | disposition home or self-care (01) ==
LOC: LBN 10:04
PROVIDERS: PCP Nurse Practitioner Family; Visit Provider Nurse Practitioner Family
DX: M10.9 Gout, unspecified (principal)
CPT/HCPCS: 84550

== ENCOUNTER 2023-09-08 13:49 | Emergency (ER) | payer OTHER, SELFPAY ==
[2023-09-08 14:19] VITALS: BP 134/88; PULSE 89; RESP 16; TEMP 36.5; O2SAT 96
--- NOTE | 2023-09-08 14:36 | ED.GENADUL_ITS ---
Discharge Plan Disposition Patient Disposition: Home Discharge Details Clinical Impression: Immunization, tetanus-diphtheria, Laceration of forearm, right Primary Care Provider: Dino Cutler ED Provider: Dann Boyce [place] Meds and New Rx's Prescriptions: Continued triamcinolone acetonide 0.1 % cream 1 applic topical BID Qty: 15 2RF ibuprofen 800 mg tablet 800 mg PO Q8H PRN (Reason: pain) Qty: 60 2RF lisinopril 40 mg tablet 40 mg PO DAILY Qty: 90 3RF sildenafil [Viagra] 50 mg tablet 50 mg PO DAILY PRN (Reason: sexual activity) Qty: 5 5RF Rx Instructions: administer 30 minutes to 4 hours before activity allopurinol 100 mg tablet 100 mg PO DAILY Qty: 90 3RF aspirin [Adult Low Dose Aspirin] 81 mg tablet,delayed release (DR/EC) 81 mg PO DAILY Qty: 90 3RF simvastatin 10 mg tablet 10 mg PO QHS Qty: 90 3RF chlorthalidone 25 mg tablet 25 mg PO DAILY Qty: 90 3RF omeprazole 40 mg capsule,delayed release(DR/EC) 40 mg PO DAILY Qty: 30 3RF Discharge Instructions Instructions: Laceration (ED) Additional Instructions: You were seen in the emergency department for your laceration which was closed with Steri-Strips that should stay on your wound as long as possible. As we discussed, please keep your wound clean, dry and covered. Please do not soak in a tub, swim or engage in any activities which could introduce dirt into your wound. As we discussed if you develop any foul-smelling drainage fevers streaking signs of infection or have any other concerns please return to the emergency department. For your pain please take medications as follows: 1. Take acetaminophen (Tylenol), 1,000 mg (two 500 mg tabs) every 6 hours HPI General Date/Time Provider Initiated Documentation: 09/08/23 14:35 . HPI Narrative: MDM This is an overall very well-appearing normothermic and not tachycardic 48-year-old qekhd-vpsr-apxbtvop male with superficial right forearm laceration which will be closed with Steri-Strips following copious irrigation and tetanus immunization update. Laceration does not violate the subcutaneous tissue and as result no indication for sutures. Right hand warm well-perfused with no motor deficits to suggest flexor tendon injury. Wound was rinsed in the emergency department. Patient declined oral analgesia in the ED. Patient and I discussed return indications including any recurrent bleeding any fevers or streaking signs of infection. Patient understood his return indications and was discharged with empiric trial of expectant outpatient management. Chronic conditions affecting the care of the patient: N/A History obtained from an outside historian: N/A External record review: N/A Medications: Tetanus Social determinants of health affecting disposition: N/A Management discussed with: N/A Treatment/interventions considered: Suture but deferred given superficial nature of wound Response to therapies provided: N/A HPI This is a qsbpu-[id number] 48-year-old male arriving to the emergency department from his place of employment following a laceration he sustained from a tool used for cutting metal just prior to arrival, earlier today. Patient was evaluated by a nurse at his place of employment who advised that he come to the emergency department. He denies any other injuries. He denies any weakness in his right hand. He denies any numbness and tingling in his right hand. He did not strike his head. He was in his usual state of health earlier today and denies fevers chills nausea vomiting chest pain shortness of breath. Exam General: Well-appearing in no acute distress speaking in complete sentences. Head: Normocephalic, atraumatic. Eye: Extraocular eye movements intact. No conjunctival injection. No scleral icterus. Ear, nose, mouth, throat: Grossly normal inspection. Normal voice, handling secretions normally. Neck: Trachea midline. Cardiovascular: Well-perfused distal extremities. Respiratory: Nonlabored respiration. Gastrointestinal: Nondistended abdomen. Musculoskeletal: On the volar surface of the right mid forearm there is a hemostatic approximately 2 cm superficial laceration. Patient has intact s ensation motor function in his right hand across the radial, median, and ulnar nerve distributions. He has 2+ right radial pulse. Cap refill less than 2 seconds in the right fingertips. Skin: Normal for age and race, grossly normal temperature and turgor. No acute rash. Neurologic: Alert and appropriate, no apparent acute deficits. GCS 15. Psychiatric: Mood and manner are appropriate. Grooming and personal hygiene are appropriate. Related Data Home Medications Medication Instructions Recorded Confirmed omeprazole 40 mg capsule,delayed 40 mg PO DAILY #30 caps 01/28/21 09/08/23 release triamcinolone acetonide 0.1 % 1 applic topical BID #15 grams 07/08/22 09/08/23 topical cream ibuprofen 800 mg tablet 800 mg PO Q8H PRN pain #60 tabs 08/17/22 09/08/23 lisinopril 40 mg tablet 40 mg PO DAILY #90 tabs 09/03/22 09/08/23 sildenafil 50 mg tablet (Viagra) 50 mg PO DAILY PRN sexual activity 09/03/22 09/08/23 #5 tabs allopurinol 100 mg tablet 100 mg PO DAILY #90 tabs 10/07/22 09/08/23 aspirin 81 mg tablet,delayed 81 mg PO DAILY #90 tabs 07/14/23 09/08/23 release (Adult Low Dose Aspirin) simvastatin 10 mg tablet 10 mg PO QHS #90 tabs 07/27/23 09/08/23 chlorthalidone 25 mg tablet 25 mg PO DAILY #90 tabs 09/08/23 09/08/23 Previous Rx's Medication Instructions Recorded omeprazole 40 mg capsule,delayed 40 mg PO DAILY #30 caps 01/28/21 release triamcinolone acetonide 0.1 % 1 applic topical BID #15 grams 07/08/22 topical cream ibuprofen 800 mg tablet 800 mg PO Q8H PRN pain #60 tabs 08/17/22 lisinopril 40 mg tablet 40 mg PO DAILY #90 tabs 09/03/22 sildenafil 50 mg tablet (Viagra) 50 mg PO DAILY PRN sexual activity 09/03/22 #5 tabs allopurinol 100 mg tablet 100 mg PO DAILY #90 tabs 10/07/22 aspirin 81 mg tablet,delayed 81 mg PO DAILY #90 tabs 07/14/23 release (Adult Low Dose Aspirin) simvastatin 10 mg tablet 10 mg PO QHS #90 tabs 07/27/23 chlorthalidone 25 mg tablet 25 mg PO DAILY #90 tabs 09/08/23 Allergies Allergy/AdvReac Type Severity Reaction Status Date / Time No Known Allergies Allergy Verified 09/08/23 14:17 General Stated Complaint: Laceration OMAR: 4 Course Vital Signs Vital signs: Vital Signs Temperature 36.5 C 09/08/23 14:19 Pulse 89 09/08/23 14:19 Respiratory Rate 16 09/08/23 14:19 Blood Pressure 134/88 09/08/23 14:19 Pulse Oximetry 96 09/08/23 14:19 Temperature 36.5 C 09/08/23 14:19 Temperature Source Temporal Artery Scan 09/08/23 14:19 Pulse 89 09/08/23 14:19 Respiratory Rate 16 09/08/23 14:19 Respiratory Effort Normal, Non-Labored 09/08/23 14:20 Blood Pressure 134/88 09/08/23 14:19 Blood Pressure Position Supine 09/08/23 14:19 Pulse Oximetry 96 09/08/23 14:19 Oxygen Delivery Method Room Air 09/08/23 14:19 Oxygen Flow Rate 0 09/08/23 14:19 Pain Level 1 09/08/23 14:19 Procedures Laceration Laceration 1: Site: upper extremity Side (If applicable): right Size (cm): 2 Description: linear Depth: simple, single layer (Superficial) Pre-repair: wound explored and irrigated extensively (Irrigated with tap water at sink) Skin layer closed with: other (5 Steri-Strips) Medical Decision Making Quality:SDOH Health Related Social Needs: No Data to Display PFSH All Active Problems (Updated 09/08/23 @ 14:47 by Dann Boyce MD) Laceration of forearm, right (Acute) Immunization, tetanus-diphtheria (Acute) Achilles tendinitis (Acute) Xerosis of skin (Acute) Ataxia (Acute) Hyponatremia (Acute) Transaminitis (Acute) Erosive esophagitis (Acute ~01/2021) Diarrhea (Acute) Hyperlipemia (Chronic) Erectile dysfunction (Chronic) Gout (Chronic) Family history of coronary artery disease in father (Chronic) Elevated LFTs (Acute 09/27/17) Essential hypertension (Acute) Family history of stroke (Acute 09/27/17) Medical History Alcohol intake above recommended sensible limits Chewing tobacco nicotine dependence Esophageal reflux HTN (hypertension) Hyperuricemia (09/27/17) Hypogonadism Lateral epicondylitis of left elbow Left knee pain Shoulder pain right Surgical History Colonoscopy - MAC 07/20/11 History of colonoscopy (~01/2021) History of esophagogastroduodenoscopy (EGD) (~01/2021) Family History Father , 52 Heart disease Myocardial infarction Stroke Cancer Mother Stroke Brother No problems noted. Son No problems noted. Daughter No problems noted. Social History Smoking/Tobacco Use Status: Current every day Tobacco Type: smokeless tobacco Smokeless tobacco user: snuff Quit status: not considering quitting Second Hand Exposure: Yes Smoking risk assessment performed?: Yes Alcohol Intake: current Alcohol Intake frequency: 3 or more drinks per day Details: 6 Beers a night Drug use: Never Substance use type: does not use Caregiver/Support person: No Household members: spouse Housing: house Communication Needs: None Do you need help understanding health information?: Rarely Pets and animals: No Sexually active: Yes Do you think of yourself as: straight/heterosexual Current gender identity: male What is your relationship status?: How often do you talk on the phone with friends or family?: decline to answer How often do you get together with friends or relatives?: decline to answer How often do you attend catholic or mandaeism services?: decline to answer Do you belong to any clubs or organized social groups?: decline to answer Panel score (0-1 are the most socially isolated patients): 1 Elisabeth/Mormon: None Agree to transfusion: No Seatbelt use: always Helmet use: Yes Drive intox or ride w/intox pedicab driver: No Do you feel safe at home: Yes Do you feel safe in your relationship?: Yes
== END 2023-09-08 15:01 | disposition home or self-care (01) ==
PROVIDERS: Emergency Provider Emergency Medicine; PCP Nurse Practitioner Family
DX: S51.811A Laceration without foreign body of right forearm, initial encounter (principal); W26.8XXA Contact with other sharp object(s), not elsewhere classified, initial encounter; Y99.0 Civilian activity done for income or pay
CPT/HCPCS: 90471; 90715; 99283

== ENCOUNTER 2024-11-06 00:32 | Outpatient (CLI) | payer OTHER, SELFPAY ==
[2024-11-06 13:13] LABS: Hemoglobin A1C 5.9 % (<5.7)
[2024-11-06 13:19] LABS: CREATININE 1.3 mg/dL (0.70-1.30); Calculated LDL 98 mg/dL (<100); Cholesterol 185 mg/dL (<200); Estimated GFR 66.51 (mL/min/1.73m2); HDL Cholesterol 67 mg/dL (>or=40); Potassium 4.4 mmol/L (3.5-5.1); Triglyceride 101 mg/dL (<150)
== END 2024-11-06 00:33 | disposition home or self-care (01) ==
LOC: LOS 00:32
PROVIDERS: PCP Nurse Practitioner Family; Visit Provider Nurse Practitioner Family
DX: R73.03 Prediabetes (principal); E78.2 Mixed hyperlipidemia; I10 Essential (primary) hypertension
CPT/HCPCS: 36415; 80061; 82565; 83036; 84132

== ENCOUNTER 2025-05-21 08:10 | Emergency (ER) | payer OTHER, SELFPAY ==
[2025-05-21 08:17] VITALS: BP 138/87; PULSE 82; RESP 12; TEMP 36.4; O2SAT 100
[2025-05-21] MEDS: Ibuprofen 400 MG TAB PO (08:33)
--- NOTE | 2025-05-21 08:59 | DI.RAD_ITS ---
Exam(s) XR WRIST LT COMP NAVICULAR EXAM: XR WRIST LT COMP NAVICULAR CLINICAL HISTORY: scaphoid view. TECHNIQUE: 2D digital imaging was performed. COMPARISON: No exams were available for comparison FINDINGS: 3 views No evidence of acute fracture or dislocation. There is mild negative ulnar variance. Scaphoid and scapholunate distance unremarkable. There are no degenerative changes in the articulations of the wrist. There is vascular calcification noted in the ulnar artery in the distal forearm. There is also a linear calcification on the lateral aspect of the wrist which is 3-4 mm length by less than 1 mm wide. May represent calcification in a tendon or possibly vascular. IMPRESSION: Finding as above but doubtful for fracture. DATA REPOSITORY: RADIATION DOSE DELIVERED:
--- NOTE | 2025-05-21 08:59 | DI.RAD_ITS ---
Exam(s) XR THUMB LT EXAM: XR THUMB LT CLINICAL HISTORY: hit with hammer. TECHNIQUE: 2D digital imaging was performed. COMPARISON: CR XR WRIST LT COMP NAVICULAR from 05/21/2025 FINDINGS: 3 views No evidence of acute fracture of the thumb. There are mild-moderate degenerative changes in the interphalangeal joint of the thumb in the lateral aspect of this articulation. The metacarpophalangeal joint of the thumb appears unremarkable as does the carpometacarpal joint of the thumb. There are no fractures in the remainder of the hand. On the lateral aspect of the wrist there is a thin calcific density measuring 3 mm length by less than 1 mm, this being longitudinally orientated. Appears somewhat distant from the lateral aspect of the scaphoid and trapezium; therefore less likely to be an avulsion fragment. May represent vascular c alcification or calcification within a tendon at this level. IMPRESSION: No obvious fracture in the thumb Other significant finding as above. DATA REPOSITORY: RADIATION DOSE DELIVERED:
--- NOTE | 2025-05-21 09:34 | W.ED.GENAD ---
Discharge Plan Disposition Patient Disposition: Home Condition: Stable Discharge Details Clinical Impression: Contusion of left hand Primary Care Provider: Dino Cutler ED Provider: Juarez Gore Home Meds and New Rx's Prescriptions: No Action triamcinolone acetonide 0.1 % cream 1 applic topical BID Qty: 15 2RF omeprazole 40 mg capsule,delayed release(DR/EC) 20 mg PO DAILY ibuprofen 800 mg tablet 800 mg PO Q8H PRN (Reason: pain) Qty: 60 2RF sildenafil [Viagra] 50 mg tablet 50 mg PO DAILY PRN (Reason: sexual activity) Qty: 5 5RF Rx Instructions: administer 30 minutes to 4 hours before activity chlorthalidone 25 mg tablet 25 mg PO DAILY Qty: 90 3RF lisinopril 40 mg tablet 40 mg PO DAILY Qty: 90 3RF simvastatin 10 mg tablet 10 mg PO QHS Qty: 90 3RF propranolol 10 mg tablet 10 mg PO BID Qty: 60 5RF allopurinol 100 mg tablet 100 mg PO DAILY Qty: 90 3RF aspirin [Adult Low Dose Aspirin] 81 mg tablet,delayed release (DR/EC) 81 mg PO DAILY Qty: 90 3RF Discharge Instructions Instructions: Minor Contusion ED Additional Instructions: You were seen in the emergency department for the contusion of your left hand, there is no fracture seen on x-ray, please continue to rest, ice, compress and elevate the hand often. Please use therapeutic dosing of Tylenol (acetamenophen) & Advil (ibuprofen) in an alternating fashion as follows: Take 1000mg of Tylenol every 6 hours without missing doses- that is 4 times per day. Retirement in between the Tylenol dosings, take 400-600mg of Advil also on a 6 hour schedule, that is also 4 times per day. The daily maximum dosing of Tylenol is 4000mg, and the daily maximum dosing of Advil is 2400mg. This is safe to do for weeks. Please note that some common cold medications & prescription pain medications may contain acetamenophen and you need to read OTC drug labels and factor that in to maximum daily dosings. Follow-up with orthopedics for any complications Stand Alone Forms: Portal Information Referrals: Dino Cutler NP [Primary Care Provider, Medicine] Discharge Data Discharge Date/Time-TO BE ENTERED AT DEPARTURE: 05/21/25 10:09 HPI General Date/Time Provider Initiated Documentation: 05/21/25 08:24. HPI Narrative: 50 year-old male presents to ED today by POV/ambulating with a chief complaint of struck his L hand with a hammer at work yesterday. Patient is R-hand dominant. Quality described as swelling and bruising, has maintained range of motion, no radiation to open lesion, numbness to fingers or thumb, proximal forearm pain, pain at the distal radius or ulna. Severity is described as moderate. Palliating factors include briefly iced it, takes Tylenol and ibuprofen with little relief. Provoking factors include nothing specific. Patient not anticoagulated. Related Data Home Medications Medication Instructions Recorded Confirmed triamcinolone acetonide 0.1 % 1 applic topical BID #15 grams 07/08/22 11/08/24 topical cream ibuprofen 800 mg tablet 800 mg PO Q8H PRN pain #60 tabs 08/17/22 11/08/24 sildenafil 50 mg tablet (Viagra) 50 mg PO DAILY PRN sexual activity 09/03/22 11/08/24 #5 tabs omeprazole 40 mg capsule,delayed 20 mg PO DAILY 05/08/24 11/08/24 release chlorthalidone 25 mg tablet 25 mg PO DAILY #90 tabs 10/01/24 11/08/24 lisinopril 40 mg tablet 40 mg PO DAILY #90 tabs 10/16/24 11/08/24 simvastatin 10 mg tablet 10 mg PO QHS #90 tabs 03/13/25 propranolol 10 mg tablet 10 mg PO BID #60 tabs 03/28/25 allopurinol 100 mg tablet 100 mg PO DAILY #90 tabs 05/10/25 aspirin 81 mg tablet,delayed 81 mg PO DAILY #90 tabs 05/23/25 release (Adult Low Dose Aspirin) Previous Rx's Medication Instructions Recorded triamcinolone acetonide 0.1 % 1 applic topical BID #15 grams 07/08/22 topical cream ibuprofen 800 mg tablet 800 mg PO Q8H PRN pain #60 tabs 08/17/22 sildenafil 50 mg tablet (Viagra) 50 mg PO DAILY PRN sexual activity 09/03/22 #5 tabs chlorthalidone 25 mg tablet 25 mg PO DAILY #90 tabs 10/01/24 lisinopril 40 mg tablet 40 mg PO DAILY #90 tabs 10/16/24 simvastatin 10 mg tablet 10 mg PO QHS #90 tabs 03/13/25 propranolol 10 mg tablet 10 mg PO BID #60 tabs 03/28/25 allopurinol 100 mg tablet 100 mg PO DAILY #90 tabs 05/10/25 aspirin 81 mg tablet,delayed 81 mg PO DAILY #90 tabs 05/23/25 release (Adult Low Dose Aspirin) Allergies Allergy/AdvReac Type Severity Reaction Status Date / Time No Known Allergies Allergy Verified 11/08/24 14:36 General Stated Complaint: Orthopedic OMAR: 4 Review of Systems All systems reviewed & are unremarkable except as noted in HPI and below Exam Narrative Exam Narrative: GENERAL APPEARANCE: Well-nourished, non-toxic, awake and alert, atraumatic, no acute distress. SKIN: Warm, pink, dry, intact, without rashes/lesions/ulcerations. HEAD: Normocephalic, atraumatic, normal hair distribution for gender/age. EYES: Normal conjunctiva, no exudates on lids/lashes. ENT: Nares patent, no circumoral cyanosis, no facial swelling NECK: Supple, trachea midline, painless cervical ROM. LUNGS/CHEST: Non-labored respirations, normal A/P diameter, symmetrical expansion, no chest wall deformity HEART (CV/PV): Regular rate, no peripheral edema, no JVD. ABDOMEN: Soft, non-distended, no guarding. MSK: Normal ROM, no deformity to bilateral UEs or LEs, moving all extremities without weakness, no cyanosis, spine midline without tenderness, normal curvature. L HAND: left bruising around the base of the thumb on the dorsal aspect with swelling, no crepitus, positive anatomical snuffbox tenderness, sensation intact in all fingers, slight limited range of motion of thumb, left radial pulse 2+ NEURO: Mental Status AAOx4 - alert to person, place, time, events No facial droop, no forehead involvement. Motor: No focal weakness - strength 5/5 in bilateral UEs and LEs, proximal and distal, symmetric. Sensory: sensation intact to light touch globally. Gait normal: patient ambulated without ataxia into ED room. PSYCH: euthymic, cooperative, pleasant, appropriate speech Course Vital Signs Vital signs: Vital Signs Temperature 36.4 C L 05/21/25 08:17 Pulse 82 05/21/25 08:17 Respiratory Rate 12 05/21/25 08:17 Blood Pressure 138/87 05/21/25 08:17 Pulse Oximetry 100 05/21/25 08:17 Temperature 36.4 C L 05/21/25 08:17 Temperature Source Tympanic 05/21/25 08:17 Pulse 82 05/21/25 08:17 Respiratory Rate 12 05/21/25 08:17 Blood Pressure 138/87 05/21/25 08:17 Blood Pressure Position Sitting 05/21/25 08:17 Pulse Oximetry 100 05/21/25 08:17 Oxygen Delivery Method Room Air 05/21/25 08:17 Oxygen Flow Rate 0 05/21/25 08:17 Medical Decision Making This dictation utilizes [id number] dictation software and may contain unedited grammatical errors. 50 year-old male presents to ED today by POV/ambulating with a chief complaint of struck his L hand with a hammer at work yesterday. Patient is R-hand dominant. Quality described as swelling and bruising, has maintained range of motion, no radiation to open lesion, numbness to fingers or thumb, proximal forearm pain, pain at the distal radius or ulna. Severity is described as moderate. Palliating factors include briefly iced it, takes Tylenol and ibuprofen with little relief. Provoking factors include nothing specific. Patients' medical history: Noncontributory. 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 Pertinent exam findings / vital signs include left bruising around the base of the thumb on the dorsal aspect with swelling, no crepitus, positive anatomical snuffbox tenderness, sensation intact in all fingers, slight limited range of motion of thumb, left radial pulse 2+. Differential / pathologies of concern include fracture, contusion. Diagnostic studies of: - X-ray left wrist, x-ray left thumb-no acute fracture seen. Interventions of: - P.o. Motrin and an ice pack, patient already had Tylenol today. ED Course/Assessment/Plan: 50-year-old male presents after striking his left hand with a hammer yesterday at work, has no acute fracture, I recommend RICE therapy and therapeutic dosing of Tylenol and ibuprofen and follow-up with orthopedics for any continued pain despite treatment, strict return for any signs of neurovascular compromise. Findings not consistent with fracture or neurovascular compromise. Disposition of contusion of left hand. Patient verbalized understanding of the plan and return to ED criteria and engaged in shared decision making. Medical Records Medical records reviewed: Yes I reviewed the patient's medical records. Imaging Data Radiologic Study: Attestation: I personally reviewed and interpreted this imaging study as follows: Imaging: X-Ray Radiologist's impression: EXAM: XR WRIST LT COMP NAVICULAR CLINICAL HISTORY: scaphoid view. TECHNIQUE: 2D digital imaging was performed. COMPARISON: No exams were available for comparison FINDINGS: 3 views No evidence of acute fracture or dislocation. There is mild negative ulnar variance. Scaphoid and scapholunate distance unremarkable. There are no degenerative changes in the articulations of the wrist. There is vascular calcification noted in the ulnar artery in the distal forearm. There is also a linear calcification on the lateral aspect of the wrist which is 3-4 mm length by less than 1 mm wide. May represent calcification in a tendon or possibly vascular. IMPRESSION: Finding as above but doubtful for fracture. Radiologic Study #2: Attestation: I personally reviewed and interpreted this imaging study as follows: Imaging: X-Ray Radiologist's impression: EXAM: XR THUMB LT CLINICAL HISTORY: hit with hammer. TECHNIQUE: 2D digital imaging was performed. COMPARISON: CR XR WRIST LT COMP NAVICULAR from 05/21/2025 FINDINGS: 3 views No evidence of acute fracture of the thumb. There are mild-moderate degenerative changes in the interphalangeal joint of the thumb in the lateral aspect of this articulation. The metacarpophalangeal joint of the thumb appears unremarkable as does the carpometacarpal joint of the thumb. There are no fractures in the remainder of the hand. On the lateral aspect of the wrist there is a thin calcific density measuring 3 mm length by less than 1 mm, this being longitudinally orientated. Appears somewhat distant from the lateral aspect of the scaphoid and trapezium; therefore less likely to be an avulsion fragment. May represent vascular calcification or calcification within a tendon at this level. IMPRESSION: No obvious fracture in the thumb Other significant finding as above. PFSH All Active Problems (Updated 05/21/25 @ 09:41 by ROBERT Concepcion) Contusion of left hand (Acute) Alcohol abuse (Chronic) Essential tremor (Acute) Acute depression (Acute) Unexpected of brother in Jul 2023. Prediabetes (Acute) Tremor (Acute) Achilles tendinitis (Acute) Xerosis of skin (Acute) Ataxia (Acute) Hyponatremia (Acute) Transaminitis (Acute) Erosive esophagitis (Acute ~01/2021) Diarrhea (Acute) Hyperlipemia (Chronic) Erectile dysfunction (Chronic) Gout (Chronic) Family history of coronary artery disease in father (Chronic) Elevated LFTs (Acute 09/27/17) Essential hypertension (Acute) Family history of stroke (Acute 09/27/17) Medical History HTN (hypertension) Lateral epicondylitis of left elbow Hypogonadism Left knee pain Chewing tobacco nicotine dependence Esophageal reflux Alcohol intake above recommended sensible limits Hyperuricemia (09/27/17) Shoulder pain right Surgical History History of colonoscopy (~01/2021) History of esophagogastroduodenoscopy (EGD) (~01/2021) Colonoscopy - MAC 07/20/11 Family History Father , 52 Heart disease Myocardial infarction Stroke Cancer Mother Stroke Brother No problems noted. Son No problems noted. Daughter No problems noted. Social History Smoking/Tobacco Use Status: Current every day Tobacco Type: smokeless tobacco Tobacco: How many years used: 25 Smokeless tobacco user: snuff Quit status: not considering quitting Second Hand Exposure: Yes Smoking risk assessment performed?: Yes Alcohol Intake: current Alcohol Intake frequency: 3 or more drinks per day Alcohol type: beer Details: 6 Beers a night Drug use: Never Substance use type: does not use Adopted: No Caregiver/Support person: No Household members: spouse Housing: house Communication Needs: None Do you need help understanding health information?: Rarely Pets and animals: No Sexually active: Yes Do you think of yourself as: straight/heterosexual Current gender identity: male What is your relationship status?: How often do you talk on the phone with friends or family?: decline to answer How often do you get together with friends or relatives?: decline to answer How often do you attend roman catholic or catholic services?: decline to answer Do you belong to any clubs or organized social groups?: decline to answer Panel score (0-1 are the most socially isolated patients): 1 Elisabeth/Confucianist: None Agree to transfusion: No Seatbelt use: always Helmet use: Yes Drive intox or ride w/intox catshovel driver: No Do you feel safe at home: Yes Do you feel safe in your relationship?: Yes
== END 2025-05-21 10:09 | disposition home or self-care (01) ==
PROVIDERS: Emergency Provider Physician Assistant; PCP Nurse Practitioner Family
DX: S60.222A Contusion of left hand, initial encounter (principal); W27.8XXA Contact with other nonpowered hand tool, initial encounter; Y99.0 Civilian activity done for income or pay
CPT/HCPCS: 99283 ×2; 73110; 73140